=== PATIENT | male | born 1975 | race Caucasian/White ===

== ENCOUNTER 2021-06-17 18:38 | Emergency (ER) | payer OTHER ==
[2021-06-17 18:52] VITALS: BP 120/78
[2021-06-17] MEDS ORDERED: TORAdol 30 mg Injection IM ONE (19:30)
--- NOTE | 2021-06-17 19:33 | ERPHSYRPT ---
- History of Present Illness Time Seen by Provider: 06/17/21 19:20 Source: patient Exam Limitations: no limitations Patient Subjective Stated Complaint: twisted left knee today playing basketball, Triage Nursing Assessment: pt alert, walked in, resp easy, skin w/d/p, took tylenol today, no swelling or bruising noted Physician History: The patient is a 46-year-old male who presents with a chief complaint of left knee pain. Onset was around 1600 this afternoon. He states he was playing basketball and jumped and came down and thinks he "tweaked" his left knee upon landing on his feet. He is endorsed having pain mainly to the lateral aspect of the left knee since that time. He has been able to weight-bear without any perceived difficulty and there is no perceived swelling. He states that he is on Austin prescribed by his PCP for "arthritis." He denies any other injuries. The pain is nonradiating constant and mild to moderate severity. He denies any weakness or paresthesias in the left leg and/or left foot. Allergies/Adverse Reactions: Penicillins Allergy (Mild, Verified 06/17/21 18:42) Home Medications: Amiodarone HCl 1 ea DAILY 06/17/21 [History] Hydrocodone/Acetaminophen [Hydrocodone-Acetamin 7.5-300] 1 ea DAILY 06/17/21 [History] Metoprolol Tartrate 25 mg [Lopressor 25MG Tab] 1 ea DAILY 06/17/21 [History] Hx Tetanus, Diphtheria Vaccination/Date Given: No Hx Influenza Vaccination/Date Given: No Hx Pneumococcal Vaccination/Date Given: No Immunizations Up to Date: Yes Travel Risk - International Travel Have you traveled outside of the country in past 3 weeks: No - Coronavirus Screening Are you exhibiting any of the following symptoms?: No - Vaccine Status Have you recieved a Covid-19 vaccination: No - Review of Systems Musculoskeletal: Other (Left knee pain) All Other Systems: Reviewed and Negative - Past Medical History Pertinent Past Medical History: Yes Neurological History: Migraines, Other ENT History: No Pertinent History Cardiac History: Hypertension Respiratory History: Asthma Endocrine Medical History: Hypothyroidism Musculoskeletal History: No Pertinent History GI Medical History: No Pertinent History Psycho-Social History: Anxiety - Past Surgical History Past Surgical History: Yes Neuro Surgical History: No Pertinent History Cardiac: No Pertinent History Gastrointestinal: Hernia Repair Other Surgical History: HERNIA - Social History Smoking Status: Current every day smoker How long have you smoked: 20 YEARS Exposure to second hand smoke: Yes Drug Use: marijuana Patient Lives Alone: No - Nursing Vital Signs Nursing Vital Signs: Initial Vital Signs Temperature 97.2 F 06/17/21 18:51 Pulse Rate 78 06/17/21 18:51 Respiratory Rate 18 06/17/21 18:51 Blood Pressure 120/78 06/17/21 18:51 O2 Sat by Pulse Oximetry 98 06/17/21 18:51 Pain Scale Pain Intensity 4 - Physical Exam General Appearance: no apparent distress, alert Eye Exam: No scleral icterus, No EOM palsy/anisocoria Ears, Nose, Throat Exam: moist mucous membranes Neck Exam: other (Trachea is midline), No JVD Respiratory Exam: normal breath sounds, lungs clear, airway intact, No chest tenderness, No respiratory distress Cardiovascular Exam: regular rate/rhythm, normal heart sounds, normal peripheral pulses, other (Left DP and PT 2+, capillary refill brisk in all toes of the left foot) Rectal Exam: deferred Extremity Exam: normal inspection, tenderness (Mild tenderness to the lateral aspect of the knee. No obvious swelling, erythema or visible injury noted. The patient was able to fully flex and extend the knee. There is no crepitus. Anterior and posterior drawer sign was negative. Shayan test was negative), other Neurologic Exam: alert, oriented x 3, cooperative, other (Sensation to gross touch intact and equal in the L4, L5, and S1 nerve distribution) Skin Exam: normal color, warm, dry, No rash, No petechiae SpO2 Interpretation: normal SpO2: 98 - Radiology Exams Knee X-ray Interpretation: Interpreted by me, Reviewed by me, Negative Ordered Tests: Active Orders 24 hr Category Date Time Status [facility] Care 06/17/21 19:31 Completed Cold Application STAT Care 06/17/21 19:31 Completed KNEE (3 VIEWS) Stat Exams 06/17/21 19:30 Taken Medication Summary Discontinued Medications Generic Name Dose Route Start Last Admin Trade Name Freq PRN Reason Stop Dose Admin Ketorolac Tromethamine 30 mg 06/17/21 19:30 06/17/21 19:35 Ketorolac Tromethamine 30 Mg/Ml Inj IM 06/17/21 19:31 30 mg STAT ONE Administration Ketorolac Tromethamine Confirm 06/17/21 19:34 Ketorolac Tromethamine 30 Mg/Ml Inj Administered 06/17/21 19:35 Dose 30 mg .ROUTE .STK-MED ONE - Progress Progress: improved Progress Note: 06/18/21 02:09 Exam was relatively benign. I have a low suspicion for ligamentous injury or tendon injury at this point. Also the patient's bearing weight and able to rang e his knee appropriately and my suspicion for tibial plateau fracture is low and therefore a CT of his knee was deferred. At most the patient may have a meniscus injury but I have a low suspicion for this as well and if this is the case we do not have MRI available in the emergency department tonight. He does not feel any instability in his knee and therefore knee brace was deferred. I provided him an Parth wrap for comfort and recommend he take naproxen for pain in addition to his prescribed Austin as well as scheduled. I recommend he follow-up with his PCP for further evaluation. 06/18/21 02:12 Counseled pt/family regarding: diagnosis, rad results - Departure Departure Disposition: Home Clinical Impression: Left knee pain Condition: Stable Critical Care Time: No Referrals: ELMA BHAKTA [Primary Care Provider] - Follow up/PCP as directed Instructions: Knee Pain (DC) Prescriptions: Naproxen 500 mg [Naprosyn 500 MG] 500 mg PO BID #10 tablet
[2021-06-17] MEDS ORDERED: TORAdol 30 mg Injection ONE (19:34)
[2021-06-17 21:22] VITALS: PULSE 59
[2021-06-18 01:27] VITALS: O2SAT 98
--- NOTE | 2021-06-18 08:54 | XRAY ---
Indication: Pain following playing basketball. Comparison: None 3 view left knee demonstrates minimal medial joint space narrowing and small posterior fabella. No other bony, articular, or soft tissue abnormalities.
== END 2021-06-17 21:22 | disposition home or self-care (01) ==
LOC: ED 18:38
DX: M25.562 Pain in left knee (principal); X50.0XXA Overexertion from strenuous movement or load, initial encounter; Y93.67 Activity, basketball; I10 Essential (primary) hypertension; Z79.891 Long term (current) use of opiate analgesic; Z79.899 Other long term (current) drug therapy; Z72.0 Tobacco use
CPT/HCPCS: 73562; 96372; 99284; J1885

== ENCOUNTER 2021-08-07 05:17 | Emergency (ER) | payer OTHER ==
[2021-08-07] MEDS ORDERED: Sodium Chloride 0.9% 1000 ML 1,000 ML IV STA (05:44)
[2021-08-07] MEDS ORDERED: Zofran 4 MG/2 ML VIAL IV ONE (05:44)
[2021-08-07] MEDS ORDERED: Zofran 4 MG/2 ML VIAL ONE (05:47)
[2021-08-07] MEDS ORDERED: Sodium Chloride 0.9% 1000 ML 1,000 ML ONE (05:47)
[2021-08-07 06:04] LABS: Absolute Neutrophil Ct (ANC) 6.38 (1.4-6.9); Basophil (Absolute #) 0.02 (0-0.4); Eosinophil % 1.3 % (0.00-5.0); Eosinophil (Absolute #) 0.11 (0-0.5); Hematocrit 41.3 % (42-50); Lymphocyte (Absolute #) 0.99 (1.0-4.6); Lymphocytes % 11.9 % (24.0-44.0); Mean Corpuscular Hemoglobin 36.3 pg (26-32); Mean Corpuscular Hgb Concent. 33.9 g/dl (32-36); Mean Platelet Volume 9.2 fl (7.5-11.0); Monocyte (Absolute #) 0.81 (0.0-1.3); Monocytes % 9.7 % (0.0-12.0); Neutrophil % 76.9 % (36.0-66.0); Platelet Count 173 K/mm3 (150-450); Red Blood Count 3.86 M/mm3 (4.1-5.6); Red Cell Distribution Width 14.9 % (11.5-14.0); White Blood Count 8.3 K/mm3 (4.0-10.5)
--- NOTE | 2021-08-07 06:20 | ERPHSYRPT ---
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 pt denies chest pain, vital signs with in normal limits, pt denies pain at this time, pt did mention doing 3 shots of alcohol around 2100. Physician History: This is a 46 y/o white male patient with h/o afib on amiodarone, htn, hypothyroid, anxiety and migraine has and presents with vague c/o shakiness, difficulty concentrating and brief blurred vision after gagging himself while brushing his teeth and tongue. 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 pt has been having insomnia for last several days. he used marijuana, 3 shots of alcohol, trazodone and his remeron last pm. he fell to sleep right away but woke up not feeling right as described above. he was supposed to be at work but was concerned about the way he was feeling. Timing/Duration: today Severity: mild (to moderate) Associated Symptoms: other (shakiness, difficult to concentrate) Allergies/Adverse Reactions: Penicillins Allergy (Mild, Verified 06/17/21 18:42) Home Medications: Amiodarone HCl 1 ea DAILY 06/17/21 [History] Hydrocodone/Acetaminophen [Hydrocodone-Acetamin 7.5-300] 1 ea DAILY 06/17/21 [History] Metoprolol Tartrate 25 mg [Lopressor 25MG Tab] 1 ea DAILY 06/17/21 [History] Hx Tetanus, Diphtheria Vaccination/Date Given: No Hx Influenza Vaccination/Date Given: No Hx Pneumococcal Vaccination/Date Given: No Travel Risk - International Travel Have you traveled outside of the country in past 3 weeks: No - Coronavirus Screening Are you exhibiting any of the following symptoms?: No Close contact with a COVID-19 positive Pt in past 14-21 Days: No - Vaccine Status Have you recieved a Covid-19 vaccination: No - Review of Systems Constitutional: No Symptoms Eyes: No Symptoms Ears, Nose, & Throat: No Symptoms Respiratory: No Symptoms Cardiac: Other (mild chest pressure) Abdominal/Gastrointestinal: No Symptoms Genitourinary Symptoms: No Symptoms Musculoskeletal: No Symptoms Skin: No Symptoms Neurological: Other (shaky, difficult to concentrate), No Headache Psychological: No Symptoms Endocrine: No Symptoms Hematologic/Lymphatic: No Symptoms Immunological/Allergic: No Symptoms All Other Systems: Reviewed and Negative - Past Medical History Pertinent Past Medical History: Yes Neurological History: Migraines, Other ENT History: No Pertinent History Cardiac History: Arrhythmia, Hypertension Respiratory History: Asthma Endocrine Medical History: Hypothyroidism Musculoskeletal History: No Pertinent History GI Medical History: No Pertinent History History: No Pertinent History Psycho-Social History: Anxiety Male Reproductive Disorders: No Pertinent History - Past Surgical History Past Surgical History: Yes Neuro Surgical History: No Pertinent History Cardiac: No Pertinent History Respiratory: No Pertinent History Gastrointestinal: Hernia Repair Genitourinary: No Pertinent History Musculoskeletal: No Pertinent History Male Surgical History: No Pertinent History Other Surgical History: HERNIA - Social History Smoking Status: Current every day smoker How long have you smoked: 20 YEARS Exposure to second hand smoke: Yes Drug Use: marijuana Patient Lives Alone: No - Nursing Vital Signs Nursing Vital Signs: Initial Vital Signs Temperature 97.3 F 08/07/21 05:24 Pulse Rate 72 08/07/21 05:24 Respiratory Rate 16 08/07/21 05:24 Blood Pressure 128/86 08/07/21 05:24 O2 Sat by Pulse Oximetry 97 08/07/21 05:24 Pain Scale Pain Intensity 0 - Physical Exam General Appearance: no apparent distress, alert, anxiety Eye Exam: PERRL/EOMI, eyes nml inspection Ears, Nose, Throat Exam: normal ENT inspection, moist mucous membranes Neck Exam: normal inspection, non-tender, supple, full range of motion Respiratory Exam: normal breath sounds, lungs clear, airway intact, No chest tenderness, No respiratory distress Cardiovascular Exam: regular rate/rhythm, normal heart sounds, normal peripheral pulses Gastrointestinal/Abdomen Exam: soft, normal bowel sounds, No tenderness Rectal Exam: not done Back Exam: normal inspection, normal range of motion, No CVA tenderness, No vertebral tenderness Extremity Exam: normal inspection, normal range of motion, pelvis stable Neurologic Exam: alert, oriented x 3, cooperative, 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 no comparison ekg) Ordered Tests: Active Orders 24 hr Category Date Time Status IV Insertion STAT Care 08/07/21 05:55 Active HEAD WITHOUT CONTRAST [CT] Stat Exams 08/07/21 05:44 Taken CBC W DIFF Stat Lab 08/07/21 05:51 Completed CMP Stat Lab 08/07/21 05:51 Completed ETHYL ALCOHOL Stat Lab 08/07/21 05:51 Completed TROPONIN Q3H Lab 08/07/21 05:51 Received TROPONIN Q3H Lab 08/07/21 08:45 Ordered TROPONIN Q3H Lab 08/07/21 11:45 Ordered TROPONIN Q3H Lab 08/07/21 14:45 Ordered TROPONIN Q3H Lab 08/07/21 17:45 Ordered UA W/RFX UR CULTURE Stat Lab 08/07/21 05:44 Ordered Urine Triage Profile Stat Lab 08/07/21 05:44 Ordered EKG STAT RT 08/07/21 05:55 Active Medication Summary Discontinued Medications Generic Name Dose Route Start Last Admin Trade Name Florentino PRN Reason Stop Dose Admin Acetaminophen 650 mg 08/07/21 06:28 08/07/21 06:34 Acetaminophen 325 Mg Tablet PO 08/07/21 06:29 650 mg STAT ONE Administration Acetaminophen Confirm 08/07/21 06:33 Acetaminophen 325 Mg Tablet Administered 08/07/21 06:34 Dose 650 mg .ROUTE .STK-MED ONE Sodium Chloride 1,000 mls @ 999 mls/hr 08/07/21 05:44 08/07/21 05:49 Sodium Chloride 0.9% 1000 Ml IV 08/07/21 06:44 999 mls/hr .Q1H1M STA Administration Sodium Chloride Confirm 08/07/21 05:47 Sodium Chloride 0.9% 1000 Ml Administered 08/07/21 05:48 Dose 1,000 mls @ ud .ROUTE .STK-MED ONE Ondansetron HCl 4 mg 08/07/21 05:44 08/07/21 05:49 Ondansetron Hcl 4 Mg/2 Ml Vial IV 08/07/21 05:45 4 mg STAT ONE Administration Ondansetron HCl Confirm 08/07/21 05:47 Ondansetron Hcl 4 Mg/2 Ml Vial Administered 08/07/21 05:48 Dose 4 mg .ROUTE .STK-MED ONE Lab/Rad Data: Laboratory Result Diagrams 08/07/21 05:51 08/07/21 05:51 Laboratory Results 08/07/21 08/07/21 Range/Units 05:51 05:51 WBC 8.3 (4.0-10.5) K/mm3 RBC 3.86 L (4.1-5.6) M/mm3 Hgb 14.0 (12.5-18.0) gm/dl Hct 41.3 L (42-50) % MCV 107.0 H (78-100) fl MCH 36.3 H (26-32) pg MCHC 33.9 (32-36) g/dl RDW 14.9 H (11.5-14.0) % Plt Count 173 (150-450) K/mm3 MPV 9.2 (7.5-11.0) fl Gran % 76.9 H (36.0-66.0) % Eos # (Auto) 0.11 (0-0.5) Absolute Lymphs (auto) 0.99 L (1.0-4.6) Absolute Monos (auto) 0.81 (0.0-1.3) Lymphocytes % 11.9 L (24.0-44.0) % Monocytes % 9.7 (0.0-12.0) % Eosinophils % 1.3 (0.00-5.0) % Basophils % 0.2 (0.0-0.4) % Absolute Granulocytes 6.38 (1.4-6.9) Basophils # 0.02 (0-0.4) Sodium 142 (137-145) mmol/L Potassium 3.3 L (3.5-5.1) mmol/L Chloride 108 H (98-107) mmol/L Carbon Dioxide 23 (22-30) mmol/L Anion Gap 14.4 (5-15) MEQ/L BUN 16 (9-20) mg/dL Creatinine 0.80 (0.66-1.25) mg/dL Estimated GFR > 60.0 ML/MIN Glucose 109 H (74-106) mg/dL Calcium 8.8 (8.4-10.2) mg/dL Total Bilirubin 0.60 (0.2-1.3) mg/dL AST 82 H (17-59) U/L ALT 82 H (0-50) U/L Alkaline Phosphatase 68 (38-126) U/L Serum Total Protein 6.9 (6.3-8.2) g/dL Albumin 4.1 (3.5-5.0) g/dL Ethyl Alcohol < 10 (0-10) mg/dL - Progress Progress: improved, re-examined Progress Note: 08/07/21 06:50 ct scan head without contrast shows sinusitis. no acute intracranial abnormality Counseled pt/family regarding: lab results, diagnosis, need for follow-up, rad results - Departure Departure Disposition: Home Clinical Impression: Sinusitis Condition: Stable Critical Care Time: No Referrals: ELMA BHAKTA [Primary Care Provider] - Follow up/PCP as directed Additional Instructions: drink plenty of fluids. take antibiotics as prescribed. follow up with primary doctor for further evaluation and management Forms: Work/School Release Form Prescriptions: Doxycycline Hyclate 100 mg [Vibramycin 100 MG] 100 mg PO BID #14 tab
[2021-08-07 06:26] LABS: ALBUMIN 4.1 g/dL (3.5-5.0); ALKALINE PHOSPHATASE 68 U/L (38-126); ANION GAP 14.4 MEQ/L (5-15); BLOOD UREA NITROGEN 16 mg/dL (9-20); CHLORIDE 108 mmol/L (98-107); Calcium 8.8 mg/dL (8.4-10.2); Carbon Dioxide 23 mmol/L (22-30); EST GLOMERULAR FILTRATION RATE > 60.0 ML/MIN; ETHYL ALCOHOL < 10 mg/dL (0-10); Glucose 109 mg/dL (74-106); Potassium 3.3 mmol/L (3.5-5.1); SGOT/AST 82 U/L (17-59); SGPT/ALT 82 U/L (0-50); SODIUM 142 mmol/L (137-145); Total Protein 6.9 g/dL (6.3-8.2)
[2021-08-07] MEDS ORDERED: TYLENOL 325 MG PO ONE (06:28)
[2021-08-07] MEDS ORDERED: TYLENOL 325 MG ONE (06:33)
[2021-08-07 07:15] LABS: Appearance CLEAR (CLEAR); Bilirubin NEGATIVE (NEGATIVE); Dipstick done @ ? MAIN LAB; Glucose NEGATIVE (NEGATIVE); Ketones NEGATIVE (NEGATIVE); Nitrite NEGATIVE (NEGATIVE); Protein,Urine Dip TRACE (Negative); RBC TRACE-INTACT Ery/ul (0-5); Specific Gravity >=1.030 (1.005-1.025); Urobilinogen 0.2 mg/dL (0-1)
[2021-08-07 07:21] LABS: Mucus MODERATE /HPF (NEGATIVE); RBC 0-2 /HPF (0-2)
[2021-08-07 07:22] LABS: Urine Cultured Indicated? YES
[2021-08-07 07:32] LABS: Amphetamine,Urine NEGATIVE (NEGATIVE); Barbiturate,Urine NEGATIVE (NEGATIVE); Benzodiazepine,Urine NEGATIVE (NEGATIVE); Cocaine,Urine NEGATIVE (NEGATIVE); Methadone,Urine NEGATIVE (NEGATIVE); Opiate,Urine POSITIVE (NEGATIVE); PCP,Urine NEGATIVE (NEGATIVE); THC,Urine NEGATIVE (NEGATIVE)
[2021-08-07 07:51] VITALS: BP 125/81; PULSE 54; O2SAT 98
--- NOTE | 2021-08-07 08:52 | XRAY ---
Indication: Dizziness and blurry vision. Multiple contiguous axial images obtained through the head without contrast. Comparison: None. Normal appearing brain parenchyma, ventricles, and bony calvarium for patient's age. Near complete opacification of the visualized left maxillary sinus and mild mucosal thickening left ethmoid sinus. Remaining visualized paranasal sinuses and mastoid air cells are clear. Impression: Paranasal sinus disease. Otherwise normal CT head without contrast exam. Comment: Preliminary interpretation made by [facility]. No critical discrepancy.
== END 2021-08-07 07:57 | disposition home or self-care (01) ==
LOC: ED 05:17
DX: J32.8 Other chronic sinusitis (principal); H53.8 Other visual disturbances; G47.09 Other insomnia; I48.91 Unspecified atrial fibrillation; I10 Essential (primary) hypertension; Z72.0 Tobacco use; Z79.891 Long term (current) use of opiate analgesic; Z79.899 Other long term (current) drug therapy
CPT/HCPCS: 36000; 36415; 70450; 80053; 80307; 81015; 84484; 85025; 87086; 96360; 96374; 99284; G0480; J2405; A9270-GY

== ENCOUNTER 2021-08-25 06:48 | Emergency (ER) | payer OTHER ==
[2021-08-25] MEDS ORDERED: BABY ASPIRIN 81 MG CHEW PO ONE (07:18)
--- NOTE | 2021-08-25 07:18 | ERPHSYRPT ---
- History of Present Illness Time Seen by Provider: 08/25/21 07:05 Historian: patient Exam Limitations: no limitations Patient Subjective Stated Complaint: pt states "I have had chest pain for the past 10 minutes. I have had heart issues the past couple years." Triage Nursing Assessment: pt ambulated into the er; pt is axo x4; c/o chest pain; pt states 5/10 pain to chest that radiates up to avtar jaws and avtar shoulders; clear apical heart tone; 74 bpm; clear lung sounds in all lobes; strong avtar radial pulses; strong avtar pedal pulses; no edema present; no JVD; vitals wnl Physician History: This is a 46-year-old white male has a history of hypothyroidism, anxiety issues, hypertension, migraine headaches and atrial fibrillation who is also taking amiodarone and presents with 10 minutes of chest pain that occurred at work this morning. It was substernal and central sharpness with shooting sensation up his bilateral neck and bilateral shoulders. He denies shortness of breath. He denies nausea vomiting or diarrhea. He denies abdominal pain. He does not have a cough or fever. Patient is not on any anticoagulation therapy and he also states that he has not seeing a airport control operator at this time. He has an appoint with a airport control operator next per his report. He has no documented coronary artery disease. Patient is an everyday smoker. Patient states that he does use the nicotine as stated before, uses caffeine and took a mini phen capsule this morning which is high potency caffeine per his report. Timing/Duration: today Chest Pain Radiation: jaw (Bilateral), arm (Bilateral) Severity of Pain-Max: mild (To moderate) Severity of Pain-Current: mild (To moderate) Modifying Factors: Improves With: nothing Associated Symptoms: denies symptoms Nitro Today/Relief: no nitro taken today Aspirin Treatment Today: 81 mg x 4, provided by ED Allergies/Adverse Reactions: Penicillins Allergy (Mild, Verified 08/25/21 06:49) Home Medications: Amiodarone HCl 1 ea DAILY 06/17/21 [History] Hydrocodone/Acetaminophen [Hydrocodone-Acetamin 7.5-300] 1 ea DAILY 06/17/21 [History] Metoprolol Succinate [Toprol Xl] 100 mg PO 08/25/21 [History] Mirtazapine [Remeron] 15 mg PO 08/25/21 [History] Potassium Chloride [Klor-Con 10] 20 meq PO BID 08/25/21 [History] Hx Tetanus, Diphtheria Vaccination/Date Given: No Hx Influenza Vaccination/Date Given: No Hx Pneumococcal Vaccination/Date Given: No Travel Risk - International Travel Have you traveled outside of the country in past 3 weeks: No - Coronavirus Screening Are you exhibiting any of the following symptoms?: No Close contact with a COVID-19 positive Pt in past 14-21 Days: No - Vaccine Status Have you recieved a Covid-19 vaccination: No - Review of Systems Constitutional: No Symptoms Eyes: No Symptoms Ears, Nose, & Throat: No Symptoms Respiratory: No Symptoms Cardiac: Chest Pain Abdominal/Gastrointestinal: No Symptoms Genitourinary Symptoms: No Symptoms, Penile Discharge Musculoskeletal: No Symptoms Skin: No Symptoms Neurological: No Symptoms Psychological: No Symptoms Endocrine: No Symptoms Hematologic/Lymphatic: No Symptoms Immunological/Allergic: No Symptoms All Other Systems: Reviewed and Negative - Past Medical History Pertinent Past Medical History: Yes Neurological History: Migraines, Other ENT History: No Pertinent History Cardiac History: Hypertension Respiratory History: Asthma Endocrine Medical History: Hypothyroidism Musculoskeletal History: No Pertinent History GI Medical History: No Pertinent History History: No Pertinent History Psycho-Social History: Anxiety Male Reproductive Disorders: No Pertinent History - Past Surgical History Past Surgical History: Yes Neuro Surgical History: No Pertinent History Cardiac: No Pertinent History Respiratory: No Pertinent History Gastrointestinal: Hernia Repair Genitourinary: No Pertinent History Musculoskeletal: No Pertinent History Male Surgical History: No Pertinent History Other Surgical History: HERNIA - Social History Smoking Status: Current some day smoker How long have you smoked: 20 YEARS Exposure to second hand smoke: Yes Drug Use: none Patient Lives Alone: No - Nursing Vital Signs Nursing Vital Signs: Initial Vital Signs Temperature 97.5 F 08/25/21 06:49 Pulse Rate 74 08/25/21 06:49 Respiratory Rate 16 08/25/21 06:49 Blood Pressure 126/80 08/25/21 06:49 O2 Sat by Pulse Oximetry 98 08/25/21 06:49 Pain Scale Pain Intensity 0 - Physical Exam General Appearance: no apparent distress, alert, anxiety Eye Exam: PERRL/EOMI, eyes nml inspection Ears, Nose, Throat Exam: normal ENT inspection, moist mucous membranes, tonsillar exudate Neck Exam: normal inspection, non-tender, supple Respiratory Exam: normal breath sounds, chest tenderness, lungs clear, respiratory distress, airway intact Cardiovascular Exam: regular rate/rhythm, normal heart sounds, normal peripheral pulses Gastrointestinal/Abdomen Exam: soft, normal bowel sounds, No tenderness Rectal Exam: not done Back Exam: normal inspection, normal range of motion, vertebral tenderness, No CVA tenderness Extremity Exam: normal inspection, normal range of motion, pelvis stable Neurologic Exam: alert, oriented x 3, cooperative, cvir tech II-XII nml as tested, normal mood/affect, nml cerebellar function, nml station & gait, sensation nml Skin Exam: normal color, warm, dry Lymphatic Exam: No adenopathy SpO2 Interpretation: normal SpO2: 98 O2 Delivery: Room Air - Course Nursing assessment & vital signs reviewed: Yes EKG Interpreted by Me: RATE (74), Sinus Rhythm, NORMAL AXIS, NORMAL INTERVALS, NORMAL QRS, NORMAL ST-T, Other (No acute ischemic changes. No changes when compared to EKG dated 08/07/2021) Ordered Tests: Active Orders 24 hr Category Date Time Status EKG-ER Only STAT Care 08/25/21 07:18 Active IV Insertion STAT Care 08/25/21 07:18 Active Pulse Oximetry (ED) STAT Care 08/25/21 07:18 Active CHEST 1 VIEW (PORTABLE) Stat Exams 08/25/21 07:41 Completed CBC W DIFF Stat Lab 08/25/21 07:10 Completed CMP Stat Lab 08/25/21 07:10 Completed D-DIMER QUANTITATIVE Stat Lab 08/25/21 07:10 Completed NT PRO BNP Stat Lab 08/25/21 07:10 Completed PROTIME WITH INR Stat Lab 08/25/21 07:10 Completed T4 (Thyroxine) Stat Lab 08/25/21 07:10 Completed TROPONIN Q3H Lab 08/25/21 07:10 Completed TROPONIN Q3H Lab 08/25/21 10:25 Completed TROPONIN Q3H Lab 08/25/21 13:30 Ordered TROPONIN Q3H Lab 08/25/21 16:30 Ordered TROPONIN Q3H Lab 08/25/21 19:30 Ordered TSH, 3RD Generation Stat Lab 08/25/21 07:10 Completed Medication Summary Discontinued Medications Generic Name Dose Route Start Last Admin Trade Name Freq PRN Reason Stop Dose Admin Aspirin 324 mg 08/25/21 07:18 08/25/21 07:23 Aspirin 81 Mg Tab.Chew PO 08/25/21 07:19 324 mg STAT ONE Administration Aspirin Confirm 08/25/21 07:27 Aspirin 81 Mg Tab.Chew Administered 08/25/21 07:28 Dose 324 mg .ROUTE .STK-MED ONE Lab/Rad Data: Laboratory Result Diagrams 08/25/21 07:10 08/25/21 07:10 Laboratory Results 08/25/21 08/25/21 08/25/21 Range/Units 10:25 07:10 07:10 WBC (4.0-10.5) K/mm3 RBC (4.1-5.6) M/mm3 Hgb (12.5-18.0) gm/dl Hct (42-50) % MCV (78-100) fl MCH (26-32) pg MCHC (32-36) g/dl RDW (11.5-14.0) % Plt Count (150-450) K/mm3 MPV (7.5-11.0) fl Gran % (36.0-66.0) % Eos # (Auto) (0-0.5) Absolute Lymphs (auto) (1.0-4.6) Absolute Monos (auto) (0.0-1.3) Lymphocytes % (24.0-44.0) % Monocytes % (0.0-12.0) % Eosinophils % (0.00-5.0) % Basophils % (0.0-0.4) % Absolute Granulocytes (1.4-6.9) Basophils # (0-0.4) PT 10.4 (9.4-12.5) SECONDS INR 0.88 (0.8-3.0) D-Dimer 411 (215-500) ng/mL Sodium (137-145) mmol/L Potassium (3.5-5.1) mmol/L Chloride (98-107) mmol/L Carbon Dioxide (22-30) mmol/L Anion Gap (5-15) MEQ/L BUN (9-20) mg/dL Creatinine (0.66-1.25) mg/dL Estimated GFR ML/MIN Glucose (74-106) mg/dL Calcium (8.4-10.2) mg/dL Total Bilirubin (0.2-1.3) mg/dL AST (17-59) U/L ALT (0-50) U/L Alkaline Phosphatase (38-126) U/L Troponin I < 0.012 < 0.012 (0.000-0.034) ng/mL NT-Pro-B Natriuret Pep (0-450) pg/mL Serum Total Protein (6.3-8.2) g/dL Albumin (3.5-5.0) g/dL Thyroxine (T4) (5.53-10.96) ug/dL TSH 3rd Generation (0.47-4.68) mIU/L 08/25/21 08/25/21 Range/Units 07:10 07:10 WBC 8.6 (4.0-10.5) K/mm3 RBC 3.58 L (4.1-5.6) M/mm3 Hgb 13.5 (12.5-18.0) gm/dl Hct 38.4 L (42-50) % MCV 107.3 H (78-100) fl MCH 37.7 H (26-32) pg MCHC 35.2 (32-36) g/dl RDW 15.4 H (11.5-14.0) % Plt Count 185 (150-450) K/mm3 MPV 9.7 (7.5-11.0) fl Gran % 66.4 H (36.0-66.0) % Eos # (Auto) 0.07 (0-0.5) Absolute Lymphs (auto) 1.68 (1.0-4.6) Absolute Monos (auto) 1.15 (0.0-1.3) Lymphocytes % 19.4 L (24.0-44.0) % Monocytes % 13.3 H (0.0-12.0) % Eosinophils % 0.8 (0.00-5.0) % Basophils % 0.1 (0.0-0.4) % Absolute Granulocytes 5.7 (1.4-6.9) Basophils # 0.01 (0-0.4) PT (9.4-12.5) SECONDS INR (0.8-3.0) D-Dimer (215-500) ng/mL Sodium 140 (137-145) mmol/L Potassium 3.6 (3.5-5.1) mmol/L Chloride 107 (98-107) mmol/L Carbon Dioxide 26 (22-30) mmol/L Anion Gap 11.6 (5-15) MEQ/L BUN 12 (9-20) mg/dL Creatinine 0.81 (0.66-1.25) mg/dL Estimated GFR > 60.0 ML/MIN Glucose 137 H (74-106) mg/dL Calcium 9.4 (8.4-10.2) mg/dL Total Bilirubin 0.60 (0.2-1.3) mg/dL AST 110 H (17-59) U/L ALT 188 H (0-50) U/L Alkaline Phosphatase 68 (38-126) U/L Troponin I (0.000-0.034) ng/mL NT-Pro-B Natriuret Pep 194 (0-450) pg/mL Serum Total Protein 6.9 (6.3-8.2) g/dL Albumin 4.0 (3.5-5.0) g/dL Thyroxine (T4) 6.75 (5.53-10.96) ug/dL TSH 3rd Generation 0.163 L (0.47-4.68) mIU/L - Progress Progress: improved Air Movement: good Progress Note: 08/25/21 09:51 Chest x-ray shows no acute cardiopulmonary process Blood Culture(s) Obtained: No Antibiotics given: No Counseled pt/family regarding: lab results, diagnosis, need for follow-up, rad results - Departure Departure Disposition: Home Clinical Impression: Non-cardiac chest pain Condition: Stable Critical Care Time: No Referrals: ELMA BHAKTA [Primary Care Provider] - Follow up/PCP as directed Additional Instructions: Take your medication as prescribed. Follow-up with your airport control operator at your initial appointment time that is scheduled next week. Follow-up with your [facility] physician for further management.
[2021-08-25] MEDS ORDERED: BABY ASPIRIN 81 MG CHEW ONE (07:27)
[2021-08-25 07:39] LABS: INR 0.88 (0.8-3.0); PROTIME 10.4 SECONDS (9.4-12.5)
[2021-08-25 08:17] LABS: ALKALINE PHOSPHATASE 68 U/L (38-126); ANION GAP 11.6 MEQ/L (5-15); BLOOD UREA NITROGEN 12 mg/dL (9-20); CHLORIDE 107 mmol/L (98-107); Calcium 9.4 mg/dL (8.4-10.2); Carbon Dioxide 26 mmol/L (22-30); Creatinine 1 0.81 mg/dL (0.66-1.25); EST GLOMERULAR FILTRATION RATE > 60.0 ML/MIN; Glucose 137 mg/dL (74-106); NT PRO BNP 194 pg/mL (0-450); Potassium 3.6 mmol/L (3.5-5.1); SGOT/AST 110 U/L (17-59); SGPT/ALT 188 U/L (0-50); SODIUM 140 mmol/L (137-145); T4 (Thyroxine) 6.75 ug/dL (5.53-10.96); TSH, 3RD Generation 0.163 mIU/L (0.47-4.68); Total Protein 6.9 g/dL (6.3-8.2)
[2021-08-25 08:46] LABS: Red Blood Count 3.58 M/mm3 (4.1-5.6); White Blood Count 8.6 K/mm3 (4.0-10.5)
[2021-08-25 08:47] LABS: Hematocrit 38.4 % (42-50); Hemoglobin 13.5 gm/dl (12.5-18.0); Mean Cell Volume 107.3 fl (78-100); Mean Corpuscular Hemoglobin 37.7 pg (26-32); Mean Corpuscular Hgb Concent. 35.2 g/dl (32-36); Mean Platelet Volume 9.7 fl (7.5-11.0); Neutrophil % 66.4 % (36.0-66.0); Platelet Count 185 K/mm3 (150-450); Red Cell Distribution Width 15.4 % (11.5-14.0)
[2021-08-25 08:48] LABS: Absolute Neutrophil Ct (ANC) 5.7 (1.4-6.9); Basophil (Absolute #) 0.01 (0-0.4); Eosinophil % 0.8 % (0.00-5.0); Eosinophil (Absolute #) 0.07 (0-0.5); Lymphocyte (Absolute #) 1.68 (1.0-4.6); Lymphocytes % 19.4 % (24.0-44.0); Monocyte (Absolute #) 1.15 (0.0-1.3); Monocytes % 13.3 % (0.0-12.0)
--- NOTE | 2021-08-25 09:34 | XRAY ---
Indication: Chest pain. Comparison: July 06, 2021. Portable chest again demonstrates normal heart and lungs with incidental right apical calcified granuloma. Bony thorax intact again with mild degenerative changes. No new/acute findings.
[2021-08-25 09:52] VITALS: O2SAT 98
[2021-08-25 11:07] VITALS: BP 118/79; PULSE 58
== END 2021-08-25 11:04 | disposition home or self-care (01) ==
LOC: ED 06:48
DX: R07.89 Other chest pain (principal); I10 Essential (primary) hypertension; Z72.0 Tobacco use; Z79.891 Long term (current) use of opiate analgesic; Z79.899 Other long term (current) drug therapy
CPT/HCPCS: 36000; 36415; 71045; 80053; 83880; 84436; 84443; 84484; 85025; 85379; 85610; 93005; 94760; 99284; A9270-GY

== ENCOUNTER 2021-09-26 06:38 | Emergency (ER) | payer OTHER ==
[2021-09-26 06:58] VITALS: BP 140/83
[2021-09-26 07:08] VITALS: PULSE 89; O2SAT 98
[2021-09-26] MEDS ORDERED: Adacel Vial IM ONE ×2 (07:24→07:25)
--- NOTE | 2021-09-26 07:35 | ERPHSYRPT ---
- History of Present Illness Time Seen by Provider: 09/26/21 07:10 Source: patient Exam Limitations: no limitations Patient Subjective Stated Complaint: pt states "I was at work at cut my leg on some banding." Triage Nursing Assessment: Pt presents to ED with towel wrapped around R calf, Pt ambulatory to bed by self, pt alert and oriented, pt presents with a 3.5 cm x 0.5 cm laceration on R lower leg d/t injury at work, area cleaned with 4x4s, s terile water, and hibiclens, laceration is currently bleeding, pt is not utd on tetanus Physician History: Patient is a 46-year-old male presents to emergency department for evaluation of laceration to right leg. Patient was at work when injury occurred. Patient states he lacerated his leg on banding. Injury occurred just prior to arrival. Patient denies pain. Patient declined pain medication. Tetanus is not up-to-date. No other injuries reported. Symptoms are mild to moderate in intensity. No specific worsening improving factors. No bony tenderness or pain in his leg. Patient is otherwise healthy. He voices no other complaints or concerns at this time. Timing/Duration: today Severity: mild Modifying Factors: Improves With: nothing Associated Symptoms: denies symptoms Allergies/Adverse Reactions: Penicillins Allergy (Mild, Verified 08/25/21 06:49) Home Medications: Amiodarone HCl 1 ea DAILY 06/17/21 [History] Hydrocodone/Acetaminophen [Hydrocodone-Acetamin 7.5-300] 1 ea DAILY 06/17/21 [H istory] Metoprolol Succinate [Toprol Xl] 100 mg PO 08/25/21 [History] Mirtazapine [Remeron] 15 mg PO 08/25/21 [History] Potassium Chloride [Klor-Con 10] 20 meq PO BID 08/25/21 [History] Hx Tetanus, Diphtheria Vaccination/Date Given: No Hx Influenza Vaccination/Date Given: No Hx Pneumococcal Vaccination/Date Given: No Immunizations Up to Date: Yes Travel Risk - International Travel Have you traveled outside of the country in past 3 weeks: No - Coronavirus Screening Are you exhibiting any of the following symptoms?: No Close contact with a COVID-19 positive Pt in past 14-21 Days: No - Vaccine Status Have you recieved a Covid-19 vaccination: No - Review of Systems Constitutional: No Symptoms, No Fever, No Chills Eyes: No Symptoms Ears, Nose, & Throat: No Symptoms Respiratory: No Symptoms, No Cough, No Dyspnea Cardiac: No Symptoms, No Chest Pain, No Edema, No Syncope Abdominal/Gastrointestinal: No Symptoms, No Abdominal Pain, No Nausea, No Vomiting, No Diarrhea Genitourinary Symptoms: No Symptoms, No Dysuria Musculoskeletal: No Symptoms, No Back Pain, No Neck Pain Skin: No Symptoms, No Rash Neurological: No Symptoms, No Dizziness, No Focal Weakness, No Sensory Changes Psychological: No Symptoms Endocrine: No Symptoms Hematologic/Lymphatic: No Symptoms Immunological/Allergic: No Symptoms All Other Systems: Reviewed and Negative - Past Medical History Pertinent Past Medical History: Yes Neurological History: Migraines, Other ENT History: No Pertinent History Cardiac History: Hypertension Respiratory History: Asthma Endocrine Medical History: Hypothyroidism Musculoskeletal History: No Pertinent History GI Medical History: No Pertinent History History: No Pertinent History Psycho-Social History: Anxiety Male Reproductive Disorders: No Pertinent History - Past Surgical History Past Surgical History: Yes Neuro Surgical History: No Pertinent History Cardiac: No Pertinent History Respiratory: No Pertinent History Gastrointestinal: Hernia Repair Genitourinary: No Pertinent History Musculoskeletal: No Pertinent History Male Surgical History: No Pertinent History Other Surgical History: HERNIA - Social History Smoking Status: Current every day smoker How long have you smoked: 20 YEARS Exposure to second hand smoke: No Drug Use: none Patient Lives Alone: No - Nursing Vital Signs Nursing Vital Signs: Initial Vital Signs Temperature 98.2 F 09/26/21 06:50 Pulse Rate 70 09/26/21 06:50 Respiratory Rate 18 09/26/21 06:50 Blood Pressure 140/83 09/26/21 06:50 O2 Sat by Pulse Oximetry 97 09/26/21 06:50 Pain Scale Pain Intensity 4 - Physical Exam General Appearance: no apparent distress, alert Eye Exam: PERRL/EOMI, eyes nml inspection Ears, Nose, Throat Exam: normal ENT inspection, TMs normal, pharynx normal, moist mucous membranes Neck Exam: normal inspection, non-tender, supple, full range of motion Respiratory Exam: normal breath sounds, lungs clear, No respiratory distress Cardiovascular Exam: regular rate/rhythm, normal heart sounds, normal peripheral pulses Gastrointestinal/Abdomen Exam: soft, normal bowel sounds, No tenderness, No mass Back Exam: normal inspection, normal range of motion, No CVA tenderness, No vertebral tenderness Extremity Exam: normal inspection, normal range of motion, pelvis stable Neurologic Exam: alert, oriented x 3, cooperative, normal mood/affect, nml cerebellar function, nml station & gait, sensation nml, No motor deficits Skin Exam: normal color, warm, dry, other (4 cm laceration to the posterior lateral aspect of his right leg. Extremity neurovascular tact distally. Compartments are soft. Cap refill less than 2 seconds.), No rash Lymphatic Exam: No adenopathy SpO2 Interpretation: normal SpO2: 98 O2 Delivery: Room Air Procedures - Laceration/Wound Repair Calf Wound Location: Right Wound Length (cm): 4 Wound's Depth, Shape: superficial Wound Explored: clean Irrigated: Yes Hibiclens Prep: Yes Wound Debrided: No debridement indicated Wound Repaired With: Addy (6 addy) Layer Closure?: No Sterile Dressing Applied?: Yes Splint Applied?: No - Course Nursing assessment & vital signs reviewed: Yes Ordered Tests: Medication Summary Discontinued Medications Generic Name Dose Route Start Last Admin Trade Name Holdenq PRN Reason Stop Dose Admin Diphtheria/Tetanus/Acell Pertussis 0.5 ml 09/26/21 07:24 09/26/21 07:27 Tdap --Diph,Pertuss(Acell),Tet Vac/Pf 0.5 Ml Vial IM 09/26/21 07:25 0.5 ml .ONCE ONE Administration Diphtheria/Tetanus/Acell Pertussis Confirm 09/26/21 07:25 Tdap --Diph,Pertuss(Acell),Tet Vac/Pf 0.5 Ml Vial Administered 09/26/21 07:26 Dose 0.5 ml IM .STK-MED ONE - Progress Progress: improved Progress Note: Patient claimed pain medication. Wound was irrigated by nursing staff. Patient chose addy instead of suture. 6 addy used to close the wound. No intra or postprocedural complications. Patient neurovascular tact distally post procedure. Tetanus updated. Sterile dressing applied. [place] are to be maintained for a period of 7 days. Patient agrees to follow-up with his primary care doctor within 48 hours for evaluation. Portions of this note were created with voice recognition technology. There may be grammatical, spelling, punctuation or sound alike errors 09/26/21 07:35 Prescription for Bactrim forwarded to patient's pharmacy. 09/26/21 07:39 Counseled pt/family regarding: diagnosis, need for follow-up - Departure Departure Disposition: Home Clinical Impression: Laceration Condition: Stable Critical Care Time: No Referrals: ELMA BHAKTA [Primary Care Provider] - Follow up/PCP as directed Additional Instructions: Discharge/Care Plan TRISTIAN EID was seen on 09/26/21 in the Emergency Room. The patient was counseled regarding Diagnosis,Lab results, Imaging studies, need for follow up and when to return to the Emergency Room. Prescriptions given: Discharge Note I have spoken with the patient and/or caregivers. I have explained the patient's condition, diagnosis and treatment plan based on the information available to me at this time. I have answered the patient's and/or caregiver's questions and addressed any concerns. The patient and/or caregivers have as good understanding of the patient's diagnosis, condition and treatment plan as can be expected at this point. The vital signs have been stable. The patient's condition is stable and appropriate for discharge from the emergency department. The patient will pursue further outpatient evaluation with the primary care physician or other designated or consulting physician as outlined in the discharge instructions. The patient and/or caregivers are agreeable to this plan of care and follow-up instructions have been explained in detail. The patient and/or caregivers have received these instruction. The patient/and or caregivers are aware that any significant change in condition or worsening of symptoms should prompt an immediate return to this or the closest emergency department or call 911. Prescriptions: Smz/Tmp Ds Tablet [Bactrim Ds Tablet] 1 udtab PO BID #14 tablet
== END 2021-09-26 07:42 | disposition home or self-care (01) ==
LOC: ED 06:38
DX: S81.811A Laceration without foreign body, right lower leg, initial encounter (principal); W45.8XXA Other foreign body or object entering through skin, initial encounter; Y92.63 Factory as the place of occurrence of the external cause; Y99.0 Civilian activity done for income or pay; I10 Essential (primary) hypertension; Z72.0 Tobacco use; Z79.891 Long term (current) use of opiate analgesic; Z79.899 Other long term (current) drug therapy; Z28.310 Unvaccinated for COVID-19
CPT/HCPCS: 12002; 90471; 90715; 99284

== ENCOUNTER 2021-10-13 19:58 | Emergency (ER) | payer OTHER ==
--- NOTE | 2021-10-13 20:07 | ERPHSYRPT ---
- History of Present Illness Time Seen by Provider: 10/13/21 20:03 Source: patient Exam Limitations: no limitations Physician History: This 46-year-old white male who suffered a laceration on 09/26/2021 and underwent staple repair with 6 ronnie applied for laceration closure. Patient has no complaints and is here for wound check and staple removal. Location: extremities (Right leg) Allergies/Adverse Reactions: Penicillins Allergy (Mild, Verified 10/13/21 20:05) Home Medications: Amiodarone HCl 1 ea DAILY 06/17/21 [History] Hydrocodone/Acetaminophen [Hydrocodone-Acetamin 7.5-300] 1 ea DAILY 06/17/21 [History] Metoprolol Succinate [Toprol Xl] 100 mg PO 08/25/21 [History] Mirtazapine [Remeron] 15 mg PO 08/25/21 [History] Potassium Chloride [Klor-Con 10] 20 meq PO BID 08/25/21 [History] Hx Tetanus, Diphtheria Vaccination/Date Given: No Hx Influenza Vaccination/Date Given: No Hx Pneumococcal Vaccination/Date Given: No Travel Risk - International Travel Have you traveled outside of the country in past 3 weeks: No - Coronavirus Screening Are you exhibiting any of the following symptoms?: No Close contact with a COVID-19 positive Pt in past 14-21 Days: No - Vaccine Status Have you recieved a Covid-19 vaccination: No - Review of Systems Constitutional: No Symptoms Eyes: No Symptoms Ears, Nose, & Throat: No Symptoms Respiratory: No Symptoms Cardiac: No Symptoms Abdominal/Gastrointestinal: No Symptoms Genitourinary Symptoms: No Symptoms Musculoskeletal: No Symptoms Skin: Other (Here for wound check and staple removal.) Neurological: No Symptoms Psychological: No Symptoms Endocrine: No Symptoms Hematologic/Lymphatic: No Symptoms Immunological/Allergic: No Symptoms All Other Systems: Reviewed and Negative - Past Medical History Pertinent Past Medical History: Yes Neurological History: Migraines, Other ENT History: No Pertinent History Cardiac History: Hypertension Respiratory History: Asthma Endocrine Medical History: Hypothyroidism Musculoskeletal History: No Pertinent History GI Medical History: No Pertinent History History: No Pertinent History Psycho-Social History: Anxiety Male Reproductive Disorders: No Pertinent History - Past Surgical History Past Surgical History: Yes Neuro Surgical History: No Pertinent History Cardiac: No Pertinent History Respiratory: No Pertinent History Gastrointestinal: Hernia Repair Genitourinary: No Pertinent History Musculoskeletal: No Pertinent History Male Surgical History: No Pertinent History Other Surgical History: HERNIA - Social History Smoking Status: Current every day smoker How long have you smoked: 20 YEARS Exposure to second hand smoke: No Drug Use: none Patient Lives Alone: No - Nursing Vital Signs Nursing Vital Signs: Initial Vital Signs Temperature 97.8 F 10/13/21 20:05 Pulse Rate 89 10/13/21 20:05 Respiratory Rate 16 10/13/21 20:05 Blood Pressure 131/82 10/13/21 20:05 O2 Sat by Pulse Oximetry 96 10/13/21 20:05 Pain Scale Pain Intensity 0 - Physical Exam General Appearance: no apparent distress, alert Eye Exam: PERRL/EOMI, eyes nml inspection Ears, Nose, Throat Exam: normal ENT inspection, moist mucous membranes Neck Exam: normal inspection, non-tender, supple, full range of motion Respiratory Exam: airway intact, No chest tenderness, No respiratory distress Gastrointestinal/Abdomen Exam: No tenderness Rectal Exam: not done Back Exam: normal inspection, normal range of motion, No CVA tenderness, No vertebral tenderness Extremity Exam: normal range of motion, pelvis stable Neurologic Exam: alert, oriented x 3, cooperative, duplication specialist II-XII nml as tested, normal mood/affect, nml cerebellar function, nml station & gait, sensation nml Skin Exam: other (Laceration repair site with ronnie is clean intact. There is no evidence of drainage or infection.) Lymphatic Exam: No adenopathy SpO2 Interpretation: normal - Course Nursing assessment & vital signs reviewed: Yes - Progress Progress: improved Progress Note: 10/13/21 20:16 Laceration repair site was examined by me. TRISTAN Olivas remove the ronnie at my direction. The air was then cleaned dried and benzoin solution was used to clean the site and then half-inch Steri-Strips were applied. - Departure Departure Disposition: Home Clinical Impression: Visit for wound check, Removal of ronnie Condition: Stable Critical Care Time: No Referrals: ELMA BHAKTA [Primary Care Provider] - Follow up/PCP as directed Additional Instructions: After 24 hours keep laceration repair site clean with soap and water each day.
[2021-10-13 20:12] VITALS: O2SAT 96
[2021-10-13 20:26] VITALS: BP 112/74; PULSE 86
== END 2021-10-13 20:26 | disposition home or self-care (01) ==
LOC: ED 19:58
DX: Z48.02 Encounter for removal of sutures (principal); I10 Essential (primary) hypertension; Z72.0 Tobacco use; Z79.891 Long term (current) use of opiate analgesic; Z79.899 Other long term (current) drug therapy; Z28.310 Unvaccinated for COVID-19
CPT/HCPCS: 99281; G0463

== ENCOUNTER 2021-11-22 04:23 | Emergency (ER) | payer OTHER ==
[2021-11-22 04:59] LABS: Absolute Neutrophil Ct (ANC) 6.35 x10^3/uL (1.4-6.9); Basophil (Absolute #) 0.03 x10^3/uL (0-0.4); Eosinophil % 0.8 % (0.00-5.0); Eosinophil (Absolute #) 0.08 x10^3/uL (0-0.5); Hematocrit 51.4 % (42-50); Lymphocyte (Absolute #) 2.98 x10^3/uL (1.0-4.6); Lymphocytes % 28.8 % (24.0-44.0); Mean Cell Volume 104.9 fL (78-100); Mean Corpuscular Hemoglobin 36.7 pg (26-32); Mean Platelet Volume 9.1 fL (7.5-11.0); Monocyte (Absolute #) 0.86 x10^3/uL (0.0-1.3); Monocytes % 8.3 % (0.0-12.0); Neutrophil % 61.3 % (36.0-66.0); Platelet Count 209 x10^3/uL (150-450); Red Cell Distribution Width 12.9 % (11.5-14.0); White Blood Count 10.4 x10^3/uL (4.0-10.5)
[2021-11-22 05:22] LABS: INR 0.94 (0.8-3.0)
[2021-11-22 05:31] LABS: D-DIMER QUANTITATIVE 1.33 mg/L (0.0-0.50)
[2021-11-22 05:33] LABS: ALBUMIN 4.8 g/dL (3.5-5.0); ALKALINE PHOSPHATASE 76 U/L (38-126); ANION GAP 14.9 MEQ/L (5-15); BLOOD UREA NITROGEN 12 mg/dL (9-20); CHLORIDE 106 mmol/L (98-107); Calcium 9.3 mg/dL (8.4-10.2); Carbon Dioxide 23 mmol/L (22-30); Creatinine 1 0.86 mg/dL (0.66-1.25); EST GLOMERULAR FILTRATION RATE > 60.0 ML/MIN; Glucose 93 mg/dL (74-106); NT PRO BNP 61.5 pg/mL (0-450); Potassium 3.6 mmol/L (3.5-5.1); SGOT/AST 74 U/L (17-59); SGPT/ALT 60 U/L (0-50); SODIUM 141 mmol/L (137-145); TROPONIN < 0.012 ng/mL (0.000-0.034); Total Protein 8.5 g/dL (6.3-8.2)
--- NOTE | 2021-11-22 05:41 | ERPHSYRPT ---
- History of Present Illness Time Seen by Provider: 11/22/21 05:55 Historian: patient Exam Limitations: no limitations Patient Subjective Stated Complaint: pt arrived by EMT stating that he was having chest pressure, and dizziness, and heart feeling strange. pt has been fe eling this way for one hour. pt states he taked amiodorone for afib that he did not take today yet. Triage Nursing Assessment: pt is alert and oriented, able to answer all que stions appropriatly. pt states he has chest tightness at this time. Physician History: Patient a 46-year-old male presents to emergency department via EMS for evaluation of chest pain. Chest pain started approximate hour prior to arrival. Chest pain described as a pressure sensation that is substernal. Pain associated with dizziness. Patient states his heart feels strange. Patient has a history of atrial fibrillation and is currently on amiodarone. No associated nausea or vomiting. No diaphoresis. No back pain. No syncope. Symptoms are mild to moderate in intensity. No specific worsening improving factors. Patient does state he is a smoker. Patient voices no other complaints or concerns at this time. Timing/Duration: today Activities at Onset: none Quality: pressure Location: substernal Chest Pain Radiation: no radiation Severity of Pain-Max: moderate Severity of Pain-Current: mild Modifying Factors: Improves With: nothing Associated Symptoms: dizziness Prior Chest Pain/Cardiac Workup: no prior chest pain Nitro Today/Relief: no nitro taken today Aspirin Treatment Today: no aspirin today Allergies/Adverse Reactions: Penicillins Allergy (Mild, Verified 10/13/21 20:05) Home Medications: Amiodarone HCl 1 ea DAILY 06/17/21 [History] Hydrocodone/Acetaminophen [Hydrocodone-Acetamin 7.5-300] 1 ea DAILY 06/17/21 [History] Metoprolol Succinate [Toprol Xl] 100 mg PO 08/25/21 [History] Mirtazapine [Remeron] 15 mg PO 08/25/21 [History] Potassium Chloride [Klor-Con 10] 20 meq PO BID 08/25/21 [History] Hx Tetanus, Diphtheria Vaccination/Date Given: No Hx Influenza Vaccination/Date Given: No Hx Pneumococcal Vaccination/Date Given: No Travel Risk - International Travel Have you traveled outside of the country in past 3 weeks: No - Coronavirus Screening Are you exhibiting any of the following symptoms?: No - Vaccine Status Have you recieved a Covid-19 vaccination: No - Review of Systems Constitutional: No Symptoms, No Fever, No Chills Eyes: No Symptoms Ears, Nose, & Throat: No Symptoms Respiratory: No Symptoms, No Cough, No Dyspnea Cardiac: No Symptoms, No Chest Pain, No Edema, No Syncope Abdominal/Gastrointestinal: No Symptoms, No Abdominal Pain, No Nausea, No Vomiting, No Diarrhea Genitourinary Symptoms: No Symptoms, No Dysuria Musculoskeletal: No Symptoms, No Back Pain, No Neck Pain Skin: No Symptoms, No Rash Neurological: No Symptoms, No Dizziness, No Focal Weakness, No Sensory Changes Psychological: No Symptoms Endocrine: No Symptoms Hematologic/Lymphatic: No Symptoms Immunological/Allergic: No Symptoms All Other Systems: Reviewed and Negative - Past Medical History Pertinent Past Medical History: Yes Neurological History: Migraines, Other ENT History: No Pertinent History Cardiac History: Hypertension Respiratory History: Asthma Endocrine Medical History: Hypothyroidism Musculoskeletal History: No Pertinent History GI Medical History: No Pertinent History History: No Pertinent History Psycho-Social History: Anxiety Male Reproductive Disorders: No Pertinent History - Past Surgical History Past Surgical History: Yes Neuro Surgical History: No Pertinent History Cardiac: No Pertinent History Respiratory: No Pertinent History Gastrointestinal: Hernia Repair Genitourinary: No Pertinent History Musculoskeletal: No Pertinent History Male Surgical History: No Pertinent History Other Surgical History: HERNIA - Social History Smoking Status: Current every day smoker How long have you smoked: 20 YEARS Exposure to second hand smoke: No Drug Use: none Patient Lives Alone: No - Nursing Vital Signs Nursing Vital Signs: Initial Vital Signs O2 Sat by Pulse Oximetry 99 11/22/21 05:40 Pain Scale Pain Intensity 0 - Physical Exam General Appearance: no apparent distress, alert Eye Exam: PERRL/EOMI, eyes nml inspection Ears, Nose, Throat Exam: normal ENT inspection, TMs normal, pharynx normal, moist mucous membranes Neck Exam: normal inspection, non-tender, supple, full range of motion Respiratory Exam: normal breath sounds, lungs clear, airway intact, No respiratory distress Cardiovascular Exam: regular rate/rhythm, normal heart sounds, normal peripheral pulses Gastrointestinal/Abdomen Exam: soft, normal bowel sounds, No tenderness, No mass Back Exam: normal inspection, normal range of motion, No CVA tenderness, No vertebral tenderness Extremity Exam: normal inspection, normal range of motion Neurologic Exam: alert, oriented x 3, cooperative, normal mood/affect, sensation nml, No motor deficits Skin Exam: normal color, warm, dry Lymphatic Exam: No adenopathy SpO2 Interpretation: normal SpO2: 99 O2 Delivery: Room Air - Course Nursing assessment & vital signs reviewed: Yes EKG Interpreted by Me: RATE (93), Sinus Rhythm, NORMAL AXIS, NORMAL INTERVALS (Ventricular trigeminy) - Radiology Exams Chest X-ray Interpretation: Interpreted by me (Clear lung castro. Normal cardiac silhouette. Intact bony thorax) Ordered Tests: Active Orders 24 hr Category Date Time Status Water Taxi Operator STAT Care 11/22/21 04:35 Active EKG-ER Only STAT Care 11/22/21 04:33 Active IV Insertion STAT Care 11/22/21 04:33 Active Pulse Oximetry (ED) STAT Care 11/22/21 04:33 Active CHEST 1 VIEW (PORTABLE) Stat Exams 11/22/21 04:34 Taken CHEST WITH CONTRAST [CT] Stat Exams 11/22/21 05:33 Taken CBC W DIFF Stat Lab 11/22/21 04:55 Completed CMP Stat Lab 11/22/21 04:55 Completed D-DIMER QUANTITATIVE Stat Lab 11/22/21 04:55 Completed NT PRO BNP Stat Lab 11/22/21 04:55 Completed PROTIME WITH INR Stat Lab 11/22/21 04:55 Completed TROPONIN Stat Lab 11/22/21 04:55 Completed Transfer Order Routine Transfer 11/22/21 Ordered Lab/Rad Data: Laboratory Result Diagrams 11/22/21 04:55 11/22/21 04:55 Laboratory Results 11/22/21 11/22/21 11/22/21 Range/Units 06:16 04:55 04:55 WBC (4.0-10.5) x10^3/uL RBC (4.1-5.6) x10^6/uL Hgb (12.5-18.0) g/dL Hct (42-50) % MCV (78-100) fL MCH (26-32) pg MCHC (32-36) g/dL RDW (11.5-14.0) % Plt Count (150-450) x10^3/uL MPV (7.5-11.0) fL Gran % (36.0-66.0) % Immature Gran % (Auto) (0.00-0.4) % Nucleat RBC Rel Count (0.00-0.1) % Eos # (Auto) (0-0.5) x10^3/uL Immature Gran # (Auto) (0.00-0.03) x10^3u/L Absolute Lymphs (auto) (1.0-4.6) x10^3/uL Absolute Monos (auto) (0.0-1.3) x10^3/uL Absolute Nucleated RBC (0.00-0.01) x10^3u/L Lymphocytes % (24.0-44.0) % Monocytes % (0.0-12.0) % Eosinophils % (0.00-5.0) % Basophils % (0.0-0.4) % Absolute Granulocytes (1.4-6.9) x10^3/uL Basophils # (0-0.4) x10^3/uL PT 10.0 (9.4-12.5) SECONDS INR 0.94 (0.8-3.0) D-Dimer 1.33 H* (0.0-0.50) mg/L Sodium 141 (137-145) mmol/L Potassium 3.6 (3.5-5.1) mmol/L Chloride 106 (98-107) mmol/L Carbon Dioxide 23 (22-30) mmol/L Anion Gap 14.9 (5-15) MEQ/L BUN 12 (9-20) mg/dL Creatinine 0.86 (0.66-1.25) mg/dL Estimated GFR > 60.0 ML/MIN Glucose 93 (74-106) mg/dL Calcium 9.3 (8.4-10.2) mg/dL Total Bilirubin 0.70 (0.2-1.3) mg/dL AST 74 H (17-59) U/L ALT 60 H (0-50) U/L Alkaline Phosphatase 76 (38-126) U/L Troponin I < 0.012 (0.000-0.034) ng/mL NT-Pro-B Natriuret Pep 61.5 (0-450) pg/mL Serum Total Protein 8.5 H (6.3-8.2) g/dL Albumin 4.8 (3.5-5.0) g/dL Influenza Type A Ag NEGATIVE (NEGATIVE) Influenza Type B Ag NEGATIVE (NEGATIVE) RSV (PCR) NEGATIVE (Negative) SARS-CoV-2 (PCR) NEGATIVE (NEGATIVE) 11/22/21 Range/Units 04:55 WBC 10.4 (4.0-10.5) x10^3/uL RBC 4.90 (4.1-5.6) x10^6/uL Hgb 18.0 (12.5-18.0) g/dL Hct 51.4 H (42-50) % MCV 104.9 H (78-100) fL MCH 36.7 H (26-32) pg MCHC 35.0 (32-36) g/dL RDW 12.9 (11.5-14.0) % Plt Count 209 (150-450) x10^3/uL MPV 9.1 (7.5-11.0) fL Gran % 61.3 (36.0-66.0) % Immature Gran % (Auto) 0.5 H (0.00-0.4) % Nucleat RBC Rel Count 0.0 (0.00-0.1) % Eos # (Auto) 0.08 (0-0.5) x10^3/uL Immature Gran # (Auto) 0.05 H (0.00-0.03) x10^3u/L Absolute Lymphs (auto) 2.98 (1.0-4.6) x10^3/uL Absolute Monos (auto) 0.86 (0.0-1.3) x10^3/uL Absolute Nucleated RBC 0.00 (0.00-0.01) x10^3u/L Lymphocytes % 28.8 (24.0-44.0) % Monocytes % 8.3 (0.0-12.0) % Eosinophils % 0.8 (0.00-5.0) % Basophils % 0.3 (0.0-0.4) % Absolute Granulocytes 6.35 (1.4-6.9) x10^3/uL Basophils # 0.03 (0-0.4) x10^3/uL PT (9.4-12.5) SECONDS INR (0.8-3.0) D-Dimer (0.0-0.50) mg/L Sodium (137-145) mmol/L Potassium (3.5-5.1) mmol/L Chloride (98-107) mmol/L Carbon Dioxide (22-30) mmol/L Anion Gap (5-15) MEQ/L BUN (9-20) mg/dL Creatinine (0.66-1.25) mg/dL Estimated GFR ML/MIN Glucose (74-106) mg/dL Calcium (8.4-10.2) mg/dL Total Bilirubin (0.2-1.3) mg/dL AST (17-59) U/L ALT (0-50) U/L Alkaline Phosphatase (38-126) U/L Troponin I (0.000-0.034) ng/mL NT-Pro-B Natriuret Pep (0-450) pg/mL Serum Total Protein (6.3-8.2) g/dL Albumin (3.5-5.0) g/dL Influenza Type A Ag (NEGATIVE) Influenza Type B Ag (NEGATIVE) RSV (PCR) (Negative) SARS-CoV-2 (PCR) (NEGATIVE) - Progress Progress: improved Air Movement: good Progress Note: Patient reassessed. No active chest pain. Initial troponin negative. D-dimer positive. CTA chest pending. Patient is a daily smoker he has been smoking daily for approximately 30 years. Patient also drinks alcohol regularly. He denies history of withdrawal. In light of patient's symptoms and risk factors patient will be admitted for cardiac rule out. COVID test pending. Case discussed with Dr. Guerra who accepts admission to observation. Plan of care discussed with patient. He agrees to admission at [facility] for further evaluation and treatment. Portions of this note were created with voice recognition technology. There may be grammatical, spelling, punctuation or sound alike errors 11/22/21 07:10 Blood Culture(s) Obtained: No Antibiotics given: No Counseled pt/family regarding: lab results, diagnosis, rad results - Departure Departure Disposition: Observation Clinical Impression: ACS (acute coronary syndrome), Abnormal EKG Condition: Stable Critical Care Time: No Referrals: ELMA BHAKTA [Primary Care Provider] - Follow up/PCP as directed
[2021-11-22 07:05] LABS: INFLUENZA A NEGATIVE (NEGATIVE); INFLUENZA B NEGATIVE (NEGATIVE); RESPIRATORY SYNCTIAL VIRUS NEGATIVE (Negative); SARS-CoV-2 Xpert Express NEGATIVE (NEGATIVE)
[2021-11-22 07:40] VITALS: BP 119/84; PULSE 47; O2SAT 97
--- NOTE | 2021-11-22 09:49 | XRAY ---
Indication: Chest pain, short of breath, nausea, and vomiting. Elevated d-dimer. Multiple contiguous axial images obtained through the chest using 100 cc Isovue 370 contrast and PE protocol. Comparison: None There is good opacification of the pulmonary arteries to includes the lobar and segmental branches. No pulmonary embolus. Heart not enlarged. Aorta is normal in course and caliber. Tiny mediastinal calcified nodes. No pathologic mediastinal/hilar lymphadenopathy. Lungs demonstrates small right apical calcified granuloma and minimal bilateral dependent atelectasis. No suspicious pulmonary mass, infiltrate, effusion, or pneumothorax. Bony thorax intact with minimal degenerative changes throughout the spine. Limited upper abdomen demonstrates fatty liver. Impression: Negative pulmonary embolus. No acute cardiopulmonary abnormalities. Incidental fatty liver and old granulomatous disease. Comment: Preliminary interpretation made by [facility]. No critical discrepancy.
--- NOTE | 2021-11-22 09:49 | XRAY ---
Indication: Chest pain and pressure. Comparison: August 25, 2021 Portable chest again demonstrates normal heart and lungs with incidental right apical calcified granuloma. Bony thorax intact. No new/acute findings.
== END 2021-11-22 07:45 | disposition left against medical advice (07) ==
LOC: ED 04:23
DX: I24.9 Acute ischemic heart disease, unspecified (principal); R94.31 Abnormal electrocardiogram [ECG] [EKG]; R07.9 Chest pain, unspecified; R42 Dizziness and giddiness; I10 Essential (primary) hypertension; Z72.0 Tobacco use; Z79.899 Other long term (current) drug therapy; Z28.310 Unvaccinated for COVID-19
CPT/HCPCS: 0241U; 36000; 36415; 71045; 71260; 80053; 83880; 84484; 85025; 85379; 85610; 93005; 93041; 94760; 99284

== ENCOUNTER 2022-03-19 22:56 | Emergency (ER) | payer OTHER ==
--- NOTE | 2022-03-19 23:27 | ERPHSYRPT ---
- History of Present Illness Time Seen by Provider: 03/20/22 00:25 Historian: patient Exam Limitations: no limitations Physician History: Patient is a 46-year-old male presents to our ED for evaluation of left-sided chest pain with radiating into his left arm. He has a history of A. fib. Patient went to work today. Patient states approximately 20 minutes prior to arrival patient experienced numbness and tingling down his left leg. Patient thought he was having a stroke. Patient told his boss and was cleared to come to our ED. Upon arrival symptoms had resolved. Patient neurologically normal. Symptoms are mild to moderate in intensity. No specific worsening improving factors. Patient voices no other complaints or concerns at this time. Portions of this note were created with voice recognition technology. There may be grammatical, spelling, punctuation or sound alike errors Timing/Duration: today Activities at Onset: none Quality: aching Location: other (Left chest) Chest Pain Radiation: arm Severity of Pain-Max: moderate Severity of Pain-Current: mild Modifying Factors: Improves With: nothing Associated Symptoms: other (Numbness down the left leg) Prior Chest Pain/Cardiac Workup: no prior chest pain Nitro Today/Relief: no nitro taken today Aspirin Treatment Today: no aspirin today Allergies/Adverse Reactions: Penicillins Allergy (Mild, Verified 03/19/22 23:41) Home Medications: Amiodarone HCl 0.5 tab DAILY 06/17/21 [History] Hydrocodone/Acetaminophen [Hydrocodone-Acetamin 7.5-300] 1 ea PO [id number] PRN 06/17/21 [History] Metoprolol Succinate [Toprol Xl] 50 mg PO BID 08/25/21 [History] Albuterol 8 gm Mdi Hfa [Ventolin Hfa MDI] 2 puffs IH Q4H PRN 03/19/22 [History] Lorazepam 0.5 mg [Ativan 0.5 MG] 1 tab PO Q12H PRN PRN 03/19/22 [History] Hx Tetanus, Diphtheria Vaccination/Date Given: No Hx Influenza Vaccination/Date Given: No Hx Pneumococcal Vaccination/Date Given: No Travel Risk - Vaccine Status Have you recieved a Covid-19 vaccination: No - Review of Systems Constitutional: No Symptoms, No Fever, No Chills Eyes: No Symptoms Ears, Nose, & Throat: No Symptoms Respiratory: No Symptoms, No Cough, No Dyspnea Cardiac: No Symptoms, No Chest Pain, No Edema, No Syncope Abdominal/Gastrointestinal: No Symptoms, No Abdominal Pain, No Nausea, No Vomiting, No Diarrhea Genitourinary Symptoms: No Symptoms, No Dysuria Musculoskeletal: No Symptoms, No Back Pain, No Neck Pain Skin: No Symptoms, No Rash Neurological: No Symptoms, No Dizziness, No Focal Weakness, No Sensory Changes Psychological: No Symptoms Endocrine: No Symptoms Hematologic/Lymphatic: No Symptoms Immunological/Allergic: No Symptoms All Other Systems: Reviewed and Negative - Past Medical History Pertinent Past Medical History: Yes Neurological History: Migraines, Other ENT History: No Pertinent History Cardiac History: Hypertension Respiratory History: Asthma Endocrine Medical History: Hypothyroidism Musculoskeletal History: No Pertinent History GI Medical History: No Pertinent History History: No Pertinent History Psycho-Social History: Anxiety Male Reproductive Disorders: No Pertinent History - Past Surgical History Past Surgical History: Yes Neuro Surgical History: No Pertinent History Cardiac: No Pertinent History Respiratory: No Pertinent History Gastrointestinal: Hernia Repair Genitourinary: No Pertinent History Musculoskeletal: No Pertinent History Male Surgical History: No Pertinent History Other Surgical History: HERNIA - Social History Smoking Status: Current every day smoker How long have you smoked: 20 YEARS Exposure to second hand smoke: No Drug Use: none Patient Lives Alone: No - Nursing Vital Signs Nursing Vital Signs: Initial Vital Signs Temperature 97.4 F 03/19/22 23:35 Pulse Rate 70 03/19/22 23:35 Respiratory Rate 14 03/19/22 23:35 Blood Pressure 120/73 03/19/22 23:35 O2 Sat by Pulse Oximetry 97 03/19/22 23:35 Pain Scale Pain Intensity 0 - Physical Exam General Appearance: no apparent distress, alert Eye Exam: PERRL/EOMI, eyes nml inspection Ears, Nose, Throat Exam: normal ENT inspection, moist mucous membranes Neck Exam: normal inspection, non-tender, supple, full range of motion Respiratory Exam: normal breath sounds, lungs clear, No respiratory distress Cardiovascular Exam: regular rate/rhythm, normal heart sounds, normal peripheral pulses Gastrointestinal/Abdomen Exam: soft, No tenderness, No mass Back Exam: normal inspection, No CVA tenderness, No vertebral tenderness Extremity Exam: normal inspection, normal range of motion Neurologic Exam: alert, oriented x 3, cooperative, normal mood/affect, sensation nml, No motor deficits Skin Exam: normal color, warm, dry SpO2 Interpretation: normal SpO2: 97 O2 Delivery: Room Air - Course Nursing assessment & vital signs reviewed: Yes EKG Interpreted by Me: RATE (70), Sinus Rhythm (Trigeminy), NORMAL AXIS, NORMAL INTERVALS - CT Exams Head CT Interpretation: Tele-radiologist Report (Normal brain no ventriculomegaly. Ethmoid and bilateral maxillary sinusitis.) Ordered Tests: Active Orders 24 hr Category Date Time Status Beauty Operator Apprentice STAT Care 03/19/22 23:50 Active EKG-ER Only STAT Care 03/19/22 23:49 Active IV Insertion STAT Care 03/19/22 23:49 Active Pulse Oximetry (ED) STAT Care 03/19/22 23:49 Active CHEST 1 VIEW (PORTABLE) Routine Exams 03/20/22 00:16 Taken HEAD WITHOUT CONTRAST [CT] Stat Exams 03/19/22 23:52 Taken CBC W DIFF Stat Lab 03/19/22 23:47 Completed CMP Stat Lab 03/19/22 23:47 Completed TROPONIN Q4H Lab 03/19/22 23:47 Completed TROPONIN Q4H Lab 03/20/22 03:49 Ordered TROPONIN Q4H Lab 03/20/22 07:49 Ordered Urine Triage Profile Stat Lab 03/20/22 01:30 Completed Lab/Rad Data: Laboratory Result Diagrams 03/19/22 23:47 03/19/22 23:47 Laboratory Results 03/20/22 03/19/22 03/19/22 Range/Units 01:30 23:47 23:47 WBC 10.6 H (4.0-10.5) x10^3/uL RBC 4.10 (4.1-5.6) x10^6/uL Hgb 13.4 (12.5-18.0) g/dL Hct 40.7 L (42-50) % MCV 99.3 (78-100) fL MCH 32.7 H (26-32) pg MCHC 32.9 (32-36) g/dL RDW 13.7 (11.5-14.0) % Plt Count 199 (150-450) x10^3/uL MPV 10.3 (7.5-11.0) fL Gran % 73.8 H (36.0-66.0) % Immature Gran % (Auto) 0.5 H (0.00-0.4) % Nucleat RBC Rel Count 0.0 (0.00-0.1) % Eos # (Auto) 0.09 (0-0.5) x10^3/uL Immature Gran # (Auto) 0.05 H (0.00-0.03) x10^3u/L Absolute Lymphs (auto) 1.92 (1.0-4.6) x10^3/uL Absolute Monos (auto) 0.68 (0.0-1.3) x10^3/uL Absolute Nucleated RBC 0.00 (0.00-0.01) x10^3u/L Lymphocytes % 18.2 L (24.0-44.0) % Monocytes % 6.4 (0.0-12.0) % Eosinophils % 0.9 (0.00-5.0) % Basophils % 0.2 (0.0-0.4) % Absolute Granulocytes 7.79 H (1.4-6.9) x10^3/uL Basophils # 0.02 (0-0.4) x10^3/uL Sodium 138 (137-145) mmol/L Potassium 3.4 L (3.5-5.1) mmol/L Chloride 106 (98-107) mmol/L Carbon Dioxide 26 (22-30) mmol/L Anion Gap 9.2 (5-15) MEQ/L BUN 10 (9-20) mg/dL Creatinine 0.75 (0.66-1.25) mg/dL Estimated GFR > 60.0 ML/MIN Glucose 90 (74-106) mg/dL Calcium 8.8 (8.4-10.2) mg/dL Total Bilirubin 0.30 (0.2-1.3) mg/dL AST 26 (17-59) U/L ALT 37 (0-50) U/L Alkaline Phosphatase 58 (38-126) U/L Troponin I < 0.012 (0.000-0.034) ng/mL Serum Total Protein 7.3 (6.3-8.2) g/dL Albumin 4.1 (3.5-5.0) g/dL Urine Opiates Level NEGATIVE (NEGATIVE) Ur Methadone NEGATIVE (NEGATIVE) Urine Barbiturates NEGATIVE (NEGATIVE) Ur Phencyclidine (PCP) NEGATIVE (NEGATIVE) Urine Amphetamine NEGATIVE (NEGATIVE) U Benzodiazepine Level NEGATIVE (NEGATIVE) Urine Cocaine NEGATIVE (NEGATIVE) Urine Marijuana (THC) POSITIVE (NEGATIVE) - Progress Progress: improved Air Movement: good Progress Note: Patient reassessed. He is asymptomatic. Telemetry neuro evaluated patient. They advised admission for further evaluation and treatment including MRI/MRA. Comfortably. Patient states that he will not stay in the hospital as he has obligations/he needs to work. Patient requesting discharge at this time. Patient understands the importance of further evaluation and treatment. Patient is of sound mind. Patient is appropriate to make informed and independent medical decisions. Patient understands that leaving AGAINST MEDICAL ADVICE can result in delayed diagnosis, increased risk of morbidity, mortality, short and long-term disability including . In spite of these risks, patient has decided to leave AGAINST MEDICAL ADVICE. Patient understands that he/she may return to our ED at any point if he or she reconsiders. Patient agrees to follow-up with his or her primary care doctor within 48 hours for reevaluation. Patient voices no other complaints or concerns at this time. We will release patient AGAINST MEDICAL ADVICE per their request. Portions of this note were created with voice recognition technology. There may be grammatical, spelling, punctuation or sound alike errors 03/20/22 02:46 Blood Culture(s) Obtained: No Antibiotics given: No Counseled pt/family regarding: lab results, diagnosis, rad results - Departure Departure Disposition: AMA Clinical Impression: Marijuana use, Chest pain, Paresthesias Condition: Stable Critical Care Time: No Referrals: ELMA BHAKTA [Primary Care Provider] - Follow up/PCP as directed
[2022-03-20 00:09] LABS: Absolute Neutrophil Ct (ANC) 7.79 x10^3/uL (1.4-6.9); Basophil (Absolute #) 0.02 x10^3/uL (0-0.4); Eosinophil % 0.9 % (0.00-5.0); Eosinophil (Absolute #) 0.09 x10^3/uL (0-0.5); Hematocrit 40.7 % (42-50); Hemoglobin 13.4 g/dL (12.5-18.0); Lymphocyte (Absolute #) 1.92 x10^3/uL (1.0-4.6); Lymphocytes % 18.2 % (24.0-44.0); Mean Cell Volume 99.3 fL (78-100); Mean Corpuscular Hemoglobin 32.7 pg (26-32); Mean Corpuscular Hgb Concent. 32.9 g/dL (32-36); Mean Platelet Volume 10.3 fL (7.5-11.0); Monocyte (Absolute #) 0.68 x10^3/uL (0.0-1.3); Monocytes % 6.4 % (0.0-12.0); Neutrophil % 73.8 % (36.0-66.0); Platelet Count 199 x10^3/uL (150-450); Red Cell Distribution Width 13.7 % (11.5-14.0); White Blood Count 10.6 x10^3/uL (4.0-10.5)
[2022-03-20 00:35] LABS: ALBUMIN 4.1 g/dL (3.5-5.0); ALKALINE PHOSPHATASE 58 U/L (38-126); ANION GAP 9.2 MEQ/L (5-15); BLOOD UREA NITROGEN 10 mg/dL (9-20); CHLORIDE 106 mmol/L (98-107); Calcium 8.8 mg/dL (8.4-10.2); Carbon Dioxide 26 mmol/L (22-30); Creatinine 1 0.75 mg/dL (0.66-1.25); EST GLOMERULAR FILTRATION RATE > 60.0 ML/MIN; Glucose 90 mg/dL (74-106); Potassium 3.4 mmol/L (3.5-5.1); SGOT/AST 26 U/L (17-59); SGPT/ALT 37 U/L (0-50); SODIUM 138 mmol/L (137-145); TROPONIN < 0.012 ng/mL (0.000-0.034); Total Protein 7.3 g/dL (6.3-8.2)
[2022-03-20 01:12] VITALS: PULSE 63
[2022-03-20 01:53] LABS: Amphetamine,Urine NEGATIVE (NEGATIVE); Barbiturate,Urine NEGATIVE (NEGATIVE); Benzodiazepine,Urine NEGATIVE (NEGATIVE); Cocaine,Urine NEGATIVE (NEGATIVE); Methadone,Urine NEGATIVE (NEGATIVE); Opiate,Urine NEGATIVE (NEGATIVE); PCP,Urine NEGATIVE (NEGATIVE); THC,Urine POSITIVE (NEGATIVE)
[2022-03-20 02:12] VITALS: BP 123/68
[2022-03-20 02:13] VITALS: O2SAT 97
--- NOTE | 2022-03-20 08:47 | XRAY ---
Indication: Left body weakness. Left eye blurry vision. Stroke. Multiple contiguous axial images obtained through the head without contrast. Comparison: August 07, 2021 Normal appearing brain parenchyma, ventricles, and bony calvarium. Again near-complete opacification left maxillary sinus with new mucosal thickening both ethmoid and right maxillary sinuses. Mastoid air cells are clear. Impression: Worsening paranasal sinus disease. Remaining CT head without contrast exam is again normal. Comment: Preliminary interpretation made by [facility]. No critical discrepancy.
--- NOTE | 2022-03-20 09:03 | XRAY ---
Indication: Chest pain. Comparison: November 22, 2021 Portable apical lordotic chest again demonstrates normal heart and lungs with incidental right apical calcified granuloma. Bony thorax intact. No new/acute findings.
== END 2022-03-20 02:50 | disposition left against medical advice (07) ==
LOC: ED 22:56
DX: R07.9 Chest pain, unspecified (principal); R20.2 Paresthesia of skin; F12.90 Cannabis use, unspecified, uncomplicated; I10 Essential (primary) hypertension; Z79.891 Long term (current) use of opiate analgesic; Z79.899 Other long term (current) drug therapy; Z28.310 Unvaccinated for COVID-19; Z72.0 Tobacco use
CPT/HCPCS: 36000; 36415; 70450; 71045; 80053; 80307; 84484; 85025; 93005; 93041; 94760; 99284; Q3014

== ENCOUNTER 2022-12-15 14:03 | Emergency (ER) | payer OTHER ==
--- NOTE | 2022-12-15 14:15 | ERPHSYRPT ---
- History of Present Illness Time Seen by Provider: 12/15/22 14:15 Historian: patient Exam Limitations: no limitations Physician History: This is a 47-year-old white male patient of Dr. Mcqueen who presents with chest pain that began in the substernal central chest area that is described as a burning sensation that radiates intermittently up his left neck left shoulder r ight arm and down both his legs. Patient consumed bourbon last evening and this morning. He smells of alcohol. Patient does have a history of atrial fibrillation on amiodarone and metoprolol. He states he is not on any anticoagulation therapy. Although he did take 3 baby aspirin prior to arrival. Patient has a history of anxiety issues, asthma, migraine headaches and hypertension. Patient has not seen his shellfish manager in over a year. He does not recall the female shellfish manager's name. Timing/Duration: today Activities at Onset: none Quality: burning Location: substernal, central Chest Pain Radiation: neck (Left), arm (Bilateral) Severity of Pain-Max: mild Severity of Pain-Current: mild Modifying Factors: Improves With: other (Real ingestion called him down per his report) Associated Symptoms: No nausea, No vomiting, No palpitations, No heartburn, No shortness of breath, No hurts to breathe, No headache, No dizziness Nitro Today/Relief: no nitro taken today Aspirin Treatment Today: 81 mg x 3, provided at home Allergies/Adverse Reactions: Penicillins Allergy (Mild, Verified 12/15/22 14:11) Home Medications: Amiodarone HCl 0.5 tab PO DAILY 06/17/21 [History] Metoprolol Succinate [Toprol Xl] 1 tab PO DAILY 08/25/21 [History] Albuterol 8 gm Mdi Hfa [Ventolin Hfa MDI] 2 puffs IH Q4H PRN 03/19/22 [History] Hx Tetanus, Diphtheria Vaccination/Date Given: No Hx Influenza Vaccination/Date Given: No Hx Pneumococcal Vaccination/Date Given: No Travel Risk - International Travel Have you traveled outside of the country in past 3 weeks: No - Coronavirus Screening Are you exhibiting any of the following symptoms?: No Close contact with a COVID-19 positive Pt in past 14-21 Days: No - Vaccine Status Have you recieved a Covid-19 vaccination: No - Review of Systems Constitutional: No Symptoms Eyes: No Symptoms Ears, Nose, & Throat: No Symptoms Respiratory: No Symptoms Cardiac: Chest Pain Abdominal/Gastrointestinal: No Symptoms Genitourinary Symptoms: No Symptoms Musculoskeletal: No Symptoms Skin: No Symptoms Neurological: No Symptoms Psychological: Anxiety Endocrine: No Symptoms Hematologic/Lymphatic: No Symptoms Immunological/Allergic: No Symptoms All Other Systems: Reviewed and Negative - Past Medical History Pertinent Past Medical History: Yes Neurological History: Migraines, Other ENT History: No Pertinent History Cardiac History: Hypertension Respiratory History: Asthma Endocrine Medical History: Hypothyroidism Musculoskeletal History: No Pertinent History GI Medical History: No Pertinent History History: No Pertinent History Psycho-Social History: Anxiety Male Reproductive Disorders: No Pertinent History - Past Surgical History Past Surgical History: Yes Neuro Surgical History: No Pertinent History Cardiac: No Pertinent History Respiratory: No Pertinent History Gastrointestinal: Hernia Repair Genitourinary: No Pertinent History Musculoskeletal: No Pertinent History Male Surgical History: No Pertinent History Other Surgical History: HERNIA - Social History Smoking Status: Current every day smoker How long have you smoked: 20 YEARS Exposure to second hand smoke: No Drug Use: none Patient Lives Alone: No - Nursing Vital Signs Nursing Vital Signs: Initial Vital Signs Temperature 98 F 12/15/22 14:04 Pulse Rate 72 12/15/22 14:04 Respiratory Rate 16 12/15/22 14:04 Blood Pressure 116/75 12/15/22 14:04 O2 Sat by Pulse Oximetry 97 12/15/22 14:04 Pain Scale Pain Intensity 6 - Physical Exam General Appearance: no apparent distress, alert, anxiety Eye Exam: PERRL/EOMI, eyes nml inspection Ears, Nose, Throat Exam: normal ENT inspection, moist mucous membranes Neck Exam: normal inspection, non-tender, supple, full range of motion Respiratory Exam: normal breath sounds, lungs clear, airway intact, No chest tenderness (Chest pain has resolved at this time), No respiratory distress Cardiovascular Exam: regular rate/rhythm, normal heart sounds, normal peripheral pulses Gastrointestinal/Abdomen Exam: soft, normal bowel sounds, No tenderness Rectal Exam: not done Back Exam: normal inspection, normal range of motion, No CVA tenderness, No vertebral tenderness Extremity Exam: normal inspection, normal range of motion, pelvis stable Neurologic Exam: alert, oriented x 3, cooperative, pipeline superintendent division II-XII nml as tested, normal mood/affect, nml cerebellar function, nml station & gait, sensation nml Skin Exam: normal color, warm, dry SpO2 Interpretation: normal O2 Delivery: Room Air - Course Nursing assessment & vital signs reviewed: Yes EKG Interpreted by Me: RATE (71), Sinus Rhythm, NORMAL AXIS, NORMAL INTERVALS, NORMAL QRS, NORMAL ST-T, Other (No acute ischemic changes on today's twelve-lead EKG.) Ordered Tests: Active Orders 24 hr Category Date Time Status Cad Detailer STAT Care 12/15/22 14:17 Active EKG-ER Only STAT Care 12/15/22 14:17 Active IV Insertion STAT Care 12/15/22 14:17 Active Pulse Oximetry (ED) STAT Care 12/15/22 14:17 Active CHEST 1 VIEW (PORTABLE) Stat Exams 12/15/22 14:17 Completed CHEST WITH CONTRAST [CT] Stat Exams 12/15/22 15:48 Completed CBC W DIFF Stat Lab 12/15/22 14:45 Completed CMP Stat Lab 12/15/22 14:25 Completed D-DIMER QUANTITATIVE Stat Lab 12/15/22 14:25 Completed MAGNESIUM Stat Lab 12/15/22 14:25 Completed TROPONIN Q4H Lab 12/15/22 14:25 Completed TROPONIN Q4H Lab 12/15/22 18:30 Ordered TROPONIN Q4H Lab 12/15/22 22:30 Ordered Medication Summary Discontinued Medications Generic Name Dose Route Start Last Admin Trade Name Freq PRN Reason Stop Dose Admin Aspirin 324 mg 12/15/22 14:17 12/15/22 15:11 Aspirin 81 Mg Tab.Chew PO 12/15/22 14:18 81 mg STAT ONE Administration Aspirin Confirm 12/15/22 15:10 Aspirin 81 Mg Tab.Chew Administered 12/15/22 15:11 Dose 81 mg .ROUTE .STK-MED ONE Sodium Chloride 500 mls @ 500 mls/hr 12/15/22 15:48 12/15/22 17:19 Sodium Chloride 0.9% 500 Ml IV 12/15/22 16:47 Infused .Q1H ONE Infusion Sodium Chloride Confirm 12/15/22 16:07 Sodium Chloride 0.9% 500 Ml Administered 12/15/22 16:08 Dose 500 mls @ ud IV .STK-MED ONE Lab/Rad Data: Laboratory Result Diagrams 12/15/22 14:45 12/15/22 14:25 Laboratory Results 12/15/22 12/15/22 12/15/22 Range/Units 14:45 14:25 14:25 WBC 6.2 (4.0-10.5) x10^3/uL RBC 4.21 (4.1-5.6) x10^6/uL Hgb 14.6 (12.5-18.0) g/dL Hct 42.5 (42-50) % MCV 101.0 H (78-100) fL MCH 34.7 H (26-32) pg MCHC 34.4 (32-36) g/dL RDW 15.0 H (11.5-14.0) % Plt Count 177 (150-450) x10^3/uL MPV 9.5 (7.5-11.0) fL Gran % 64.3 (36.0-66.0) % Immature Gran % (Auto) 0.3 (0.00-0.4) % Nucleat RBC Rel Count 0.0 (0.00-0.1) % Eos # (Auto) 0.22 (0-0.5) x10^3/uL Immature Gran # (Auto) 0.02 (0.00-0.03) x10^3u/L Absolute Lymphs (auto) 1.39 (1.0-4.6) x10^3/uL Absolute Monos (auto) 0.57 (0.0-1.3) x10^3/uL Absolute Nucleated RBC 0.00 (0.00-0.01) x10^3u/L Lymphocytes % 22.3 L (24.0-44.0) % Monocytes % 9.1 (0.0-12.0) % Eosinophils % 3.5 (0.00-5.0) % Basophils % 0.5 (0.0-0.4) % Absolute Granulocytes 4.01 (1.4-6.9) x10^3/uL Basophils # 0.03 (0-0.4) x10^3/uL D-Dimer 0.61 H* (0.0-0.50) mg/L Sodium (137-145) mmol/L Potassium (3.5-5.1) mmol/L Chloride (98-107) mmol/L Carbon Dioxide (22-30) mmol/L Anion Gap (5-15) MEQ/L BUN (9-20) mg/dL Creatinine (0.66-1.25) mg/dL Estimated GFR ML/MIN Glucose (74-106) mg/dL Calcium (8.4-10.2) mg/dL Magnesium (1.6-2.3) mg/dL Total Bilirubin (0.2-1.3) mg/dL AST (17-59) U/L ALT (0-50) U/L Alkaline Phosphatase (38-126) U/L Troponin I < 0.012 (0.000-0.034) ng/mL Serum Total Protein (6.3-8.2) g/dL Albumin (3.5-5.0) g/dL 12/15/22 Range/Units 14:25 WBC (4.0-10.5) x10^3/uL RBC (4.1-5.6) x10^6/uL Hgb (12.5-18.0) g/dL Hct (42-50) % MCV (78-100) fL MCH (26-32) pg MCHC (32-36) g/dL RDW (11.5-14.0) % Plt Count (150-450) x10^3/uL MPV (7.5-11.0) fL Gran % (36.0-66.0) % Immature Gran % (Auto) (0.00-0.4) % Nucleat RBC Rel Count (0.00-0.1) % Eos # (Auto) (0-0.5) x10^3/uL Immature Gran # (Auto) (0.00-0.03) x10^3u/L Absolute Lymphs (auto) (1.0-4.6) x10^3/uL Absolute Monos (auto) (0.0-1.3) x10^3/uL Absolute Nucleated RBC (0.00-0.01) x10^3u/L Lymphocytes % (24.0-44.0) % Monocytes % (0.0-12.0) % Eosinophils % (0.00-5.0) % Basophils % (0.0-0.4) % Absolute Granulocytes (1.4-6.9) x10^3/uL Basophils # (0-0.4) x10^3/uL D-Dimer (0.0-0.50) mg/L Sodium 139 (137-145) mmol/L Potassium 3.7 (3.5-5.1) mmol/L Chloride 105 (98-107) mmol/L Carbon Dioxide 23 (22-30) mmol/L Anion Gap 14.9 (5-15) MEQ/L BUN 11 (9-20) mg/dL Creatinine 0.67 (0.66-1.25) mg/dL Estimated GFR > 60.0 ML/MIN Glucose 117 H (74-106) mg/dL Calcium 8.8 (8.4-10.2) mg/dL Magnesium 2.0 (1.6-2.3) mg/dL Total Bilirubin 0.40 (0.2-1.3) mg/dL AST 70 H (17-59) U/L ALT 77 H (0-50) U/L Alkaline Phosphatase 74 (38-126) U/L Troponin I (0.000-0.034) ng/mL Serum Total Protein 7.5 (6.3-8.2) g/dL Albumin 4.4 (3.5-5.0) g/dL - Progress Progress: re-examined, unchanged Air Movement: good Progress Note: 12/15/22 15:12 Chest x-ray was interpreted by the radiologist. There is no evidence of any acute cardiopulmonary process. This patient's medical issue is 1 of moderate complexity. The patient's level of complexity is based on review of the patient's past medical history, review of the patient's medication list, review of the patient's drug allergy list, history of present illness and physical findings on examination. The work-up in this patient includes chest x-ray, twelve-lead EKG, CBC, D-dimer, troponin level, CBC and CMP. 12/15/22 17:39 CT scan of the chest with contrast shows no pulmonary embolus. There is 2 right upper lobe nodules present with some mediastinal adenopathy. (I discussed these findings with the patient. He is to follow-up with his primary care provider) Blood Culture(s) Obtained: No Antibiotics given: No Counseled pt/family regarding: lab results, diagnosis, need for follow-up, rad results Medical Desision Making - Diagnostic Testing Diagnostic test were ordered, analyzed, and reviewed by me: Yes Radiological Interpretation: Reviewed by me, Teleradiologist Report - Risk of complications Low Risk: Low risk of morbidity from additional dx testing or treatment - Departure Departure Disposition: Home Clinical Impression: Chest pain, Apical lung nodule Condition: Stable Critical Care Time: No Referrals: AURORA MCQUEEN MD [Primary Care Provider] - Follow up/PCP as directed Additional Instructions: Drink plenty of fluids. Avoid alcohol ingestion. Avoid ingestion of fatty greasy spicy foods. Take your medications as prescribed. Avoid exposure to any type of smoke. Follow-up with your shellfish manager by phone on 12/18/2022, for further evaluation and management from the cardiac standpoint. Call your primary care provider on 12/18/2022 to further discuss the findings of the right upper lung lobe nodules.
[2022-12-15] MEDS ORDERED: BABY ASPIRIN 81 MG CHEW PO ONE (14:17)
[2022-12-15 14:32] VITALS: TEMP 98
[2022-12-15 15:00] LABS: Absolute Neutrophil Ct (ANC) 4.01 x10^3/uL (1.4-6.9); BASOPHIL % 0.5 % (0.0-0.4); Basophil (Absolute #) 0.03 x10^3/uL (0-0.4); Eosinophil % 3.5 % (0.00-5.0); Eosinophil (Absolute #) 0.22 x10^3/uL (0-0.5); Hematocrit 42.5 % (42-50); Hemoglobin 14.6 g/dL (12.5-18.0); IMMATURE GRAN # 0.02 x10^3u/L (0.00-0.03); IMMATURE GRAN % 0.3 % (0.00-0.4); Lymphocyte (Absolute #) 1.39 x10^3/uL (1.0-4.6); Lymphocytes % 22.3 % (24.0-44.0); Mean Corpuscular Hemoglobin 34.7 pg (26-32); Mean Corpuscular Hgb Concent. 34.4 g/dL (32-36); Mean Platelet Volume 9.5 fL (7.5-11.0); Monocyte (Absolute #) 0.57 x10^3/uL (0.0-1.3); Monocytes % 9.1 % (0.0-12.0); Neutrophil % 64.3 % (36.0-66.0); Platelet Count 177 x10^3/uL (150-450); Red Blood Count 4.21 x10^6/uL (4.1-5.6); White Blood Count 6.2 x10^3/uL (4.0-10.5)
[2022-12-15] MEDS ORDERED: BABY ASPIRIN 81 MG CHEW ONE (15:10)
--- NOTE | 2022-12-15 15:10 | XRAY ---
CLINICAL HISTORY:Chest pain COMPARISON:None. TECHNIQUE:X-ray of the chest, AP upright portable view. FINDINGS: No consolidation noted The rounded calcified density noted in the apical region of the right lung measures 0.6-0.6 cm and could be calcified granuloma. Normal configuration of the mediastinum. Mild bilateral perihilar vascular congestion was seen. The cardiac size is normal. Costophrenic and cardiophrenic angles are clear. The bony thorax is unremarkable. IMPRESSION: No active pulmonary pathology was detected. Electronically Signed by: Seda Bazzi MD. (12/15/2022 14:10:09 RISK INTERN)
[2022-12-15 15:17] LABS: ALBUMIN 4.4 g/dL (3.5-5.0); ALKALINE PHOSPHATASE 74 U/L (38-126); ANION GAP 14.9 MEQ/L (5-15); BLOOD UREA NITROGEN 11 mg/dL (9-20); CHLORIDE 105 mmol/L (98-107); Calcium 8.8 mg/dL (8.4-10.2); Carbon Dioxide 23 mmol/L (22-30); Creatinine 1 0.67 mg/dL (0.66-1.25); EST GLOMERULAR FILTRATION RATE > 60.0 ML/MIN; Glucose 117 mg/dL (74-106); Potassium 3.7 mmol/L (3.5-5.1); SGOT/AST 70 U/L (17-59); SGPT/ALT 77 U/L (0-50); SODIUM 139 mmol/L (137-145); Total Protein 7.5 g/dL (6.3-8.2)
[2022-12-15] MEDS ORDERED: Sodium Chloride 0.9% 500 ML 500 ML IV ONE ×2 (15:48→16:07)
[2022-12-15 17:13] VITALS: BP 114/74; PULSE 55; RESP 12; O2SAT 94
--- NOTE | 2022-12-15 17:33 | XRAY ---
CLINICAL HISTORY:CP; elevated D-dimer COMPARISON:CT done on 11/22/2021 TECHNIQUE:Contiguous 3.[address] images of the chest were acquired with the administration of intravenous contrast. Coronal and sagittal reconstructions were obtained. Total exam DLP: 741.97 FINDINGS: Bilateral pulmonary arteries are normally opacified with no evidence of any thrombus in any of them till their second-order branches. The scanned pulmonary parenchyma shows two small nodules. One in the apical segment of the right upper lobe measuring 7 x 8.6mm and another tiny faint nodule in the anterior segment of the left upper lobe measuring 3mm . Few atelectatic bands are seen in bilateral lower lung lobes. Few enlarged lymph nodes are seen in the mediastinum. Largest in subcarinal location with internal calcification measuring 1.6 x 1.5 cm in size. No definite consolidative lesions. No free or encysted pleural effusion. Heart size is normal, and there is no pericardial effusion. There is no definite mass lesion in the chest wall. Degenerative changes are seen in the spine with mild dextroscoliosis. Two renal cortical cysts are seeen in the left kidney. One at the upper pole measures 1.2 x 1.1 cm and other at mid pole measures 1.1 x 1.0cm with no internal septations, calcifications ar solid components. The rest of the scanned upper abdomen is unremarkable. IMPRESSION: 1. No pulmonary embolism. 2. Two nodules are seen in the apical segment of the right upper lobe and the anterior segment of left upper lobe with some mediastinal lymphadenopathy with internal calcification which can be appreciated in a previous study dated 11/22/2021 ... likely representing a chronic granulomatous process. However, clinical correlation and follow-up is suggested. 3. Mild atelectasis in lower lobes. 4. Left simple Bosniak type 1 renal cortical cysts. 5. Degenerative changes in spine. Electronically Signed by: Seda Bazzi MD. (12/15/2022 16:32:27 VOCATIONAL TECHNICAL EDUCATION TEACHER)
== END 2022-12-15 18:02 | disposition home or self-care (01) ==
LOC: ED 14:03
DX: R07.9 Chest pain, unspecified (principal); R91.1 Solitary pulmonary nodule; I10 Essential (primary) hypertension; Z79.899 Other long term (current) drug therapy; Z28.310 Unvaccinated for COVID-19; Z72.0 Tobacco use
CPT/HCPCS: 36000; 36415; 71045; 71260; 80053; 83735; 84484; 85025; 85379; 93005; 93041; 94760; 99284; A9270-GY

== ENCOUNTER 2023-06-24 15:03 | Emergency (ER) | payer SELFPAY ==
[2023-06-24 15:30] VITALS: TEMP 98.4
--- NOTE | 2023-06-24 16:01 | ERPHSYRPT ---
- History of Present Illness Time Seen by Provider: 06/24/23 16:00 Source: patient Patient Subjective Stated Complaint: C/O "stopping breathing" in his sleep last night. Patient states earlier today his B/P was 165/112 and his Pulse was 116. He indicates that his bulk materials handling plant operator, Dr. Sorin Castellon took him off of his amiodarone a few months ago stating that he doesn't need it. Triage Nursing Assessment: Patient ambulated back to ER without difficulties. He is alert and oriented. No SOB noted. Skin tone normal. CINTHIA WNL. Asked patient why he believes that he quits breathing in his sleep and he states that he wakes up gasping at times. Current B/P is normal at 112/80 with a pulse of 81. Physician History: 48yo m presents for episode of sob, heart palpitations, near syncope that occurred this AM around 8h SAMPLE PASTER. Pt asymptomatic at time of exam. Pt reports he has hx of afib, was on amiodarone for around 7yrs and was discontinued by his bulk materials handling plant operator in 03/07. Pt also reports he has episodes in which he wakes up gasping for air at night, reports he had an episode like this last night. Pt is worried that his afib has come back, reports anxiety regarding his heart condition. Pt denies any cp, soa, n/v/abdominal pain, fevers, chills, [place] at time of exam. Timing/Duration: today, hour(s) (8h SAMPLE PASTER) Activities at Onset: none Severity of Dyspnea-Max: mild Severity of Dyspnea-Current: mild Allergies/Adverse Reactions: Penicillins Allergy (Mild, Verified 06/24/23 15:23) Home Medications: Metoprolol Succinate [Toprol Xl] 1 tab PO DAILY 08/25/21 [History] Albuterol 8 gm Mdi Hfa [Ventolin Hfa MDI] 2 puffs IH Q4H PRN 03/19/22 [History] Buprenorphine HCl/Naloxone HCl [Buprenorphine-Nalox 8-2 mg Tab] 2 tab PO BID 06/24/23 [History] Buspirone HCl 5 mg [Buspar 5 mg] 10 mg PO BID 06/24/23 [History] Trazodone HCl 1 tab PO HS 06/24/23 [History] Hx Tetanus, Diphtheria Vaccination/Date Given: Yes Hx Influenza Vaccination/Date Given: No Hx Pneumococcal Vaccination/Date Given: No Immunizations Up to Date: Yes Travel Risk - International Travel Have you traveled outside of the country in past 3 weeks: No - Coronavirus Screening Are you exhibiting any of the following symptoms?: No Close contact with a COVID-19 positive Pt in past 14-21 Days: No - Vaccine Status Have you recieved a Covid-19 vaccination: No - Review of Systems Constitutional: No Symptoms Respiratory: Dyspnea, No Cough, No Dyspnea on Exertion (PACHECO), No Wheezing Cardiac: Palpitations, No Chest Pain, No Syncope Abdominal/Gastrointestinal: No Symptoms Psychological: Alcohol Abuse, Anxiety, No Depression - Past Medical History Pertinent Past Medical History: Yes Neurological History: Migraines, Other ENT History: No Pertinent History Cardiac History: Arrhythmia, Hypertension Respiratory History: Asthma Endocrine Medical History: Hypothyroidism Musculoskeletal History: No Pertinent History GI Medical History: Hernia History: No Pertinent History Psycho-Social History: Anxiety Male Reproductive Disorders: No Pertinent History Other Medical History: Motor Boss: Dr. Sorin Castellon - Past Surgical History Past Surgical History: Yes Neuro Surgical History: No Pertinent History Cardiac: Cardiac Catheterization Respiratory: No Pertinent History Gastrointestinal: Hernia Repair Genitourinary: No Pertinent History Musculoskeletal: No Pertinent History Male Surgical History: No Pertinent History Other Surgical History: HERNIA - Social History Smoking Status: Current every day smoker How long have you smoked: 20 YEARS Exposure to second hand smoke: No Drug Use: none Patient Lives Alone: No - Nursing Vital Signs Nursing Vital Signs: Initial Vital Signs Temperature 98.4 F 06/24/23 15:20 Pulse Rate 79 06/24/23 15:20 Respiratory Rate 14 06/24/23 15:20 Blood Pressure 112/80 06/24/23 15:20 O2 Sat by Pulse Oximetry 98 06/24/23 15:20 Pain Scale Pain Intensity 0 - Physical Exam General Appearance: no apparent distress, alert Respiratory Exam: normal breath sounds, lungs clear, airway intact, No chest tenderness, No respiratory distress Cardiovascular/Chest Exam: normal heart sounds, normal peripheral pulses, irregular, extra beats Abdominal/Gastrointestinal Exam: soft, normal bowel sounds, No tenderness Neurologic Exam: alert, oriented x 3, cooperative, normal mood/affect, sensation nml SpO2 Interpretation: normal SpO2: 98 O2 Delivery: Room Air - Course EKG Interpreted by Me: RATE (75), Sinus Rhythm, Other (multiple PVCs; qtcb 476; not suggestive of acute ischemia) Ordered Tests: Active Orders 24 hr Category Date Time Status CHEST 2 VIEWS (PA AND LAT) Stat Exams 06/24/23 15:59 Completed CBC W DIFF Stat Lab 06/24/23 16:00 Completed CMP Stat Lab 06/24/23 16:00 Completed PROTIME WITH INR Stat Lab 06/24/23 16:00 Completed TROPONIN Q4H Lab 06/24/23 16:00 Completed TROPONIN Q4H Lab 06/24/23 20:00 Ordered TROPONIN Q4H Lab 06/25/23 00:00 Ordered Urine Triage Profile Stat Lab 06/24/23 17:32 Completed Lab/Rad Data: Laboratory Result Diagrams 06/24/23 16:00 06/24/23 16:00 Laboratory Results 06/24/23 06/24/23 06/24/23 Range/Units 17:32 16:00 16:00 WBC (4.0-10.5) x10^3/uL RBC (4.1-5.6) x10^6/uL Hgb (12.5-18.0) g/dL Hct (42-50) % MCV (78-100) fL MCH (26-32) pg MCHC (32-36) g/dL RDW (11.5-14.0) % Plt Count (150-450) x10^3/uL MPV (7.5-11.0) fL Gran % (36.0-66.0) % Immature Gran % (Auto) (0.00-0.4) % Nucleat RBC Rel Count (0.00-0.1) % Eos # (Auto) (0-0.5) x10^3/uL Immature Gran # (Auto) (0.00-0.03) x10^3u/L Absolute Lymphs (auto) (1.0-4.6) x10^3/uL Absolute Monos (auto) (0.0-1.3) x10^3/uL Absolute Nucleated RBC (0.00-0.01) x10^3u/L Lymphocytes % (24.0-44.0) % Monocytes % (0.0-12.0) % Eosinophils % (0.00-5.0) % Basophils % (0.0-0.4) % Absolute Granulocytes (1.4-6.9) x10^3/uL Basophils # (0-0.4) x10^3/uL PT 9.9 (9.4-12.5) SECONDS INR 0.90 (0.8-3.0) Sodium (135-145) mmol/L Potassium (3.5-5.1) mmol/L Chloride (98-107) mmol/L Carbon Dioxide (22-30) mmol/L Anion Gap (5-15) MEQ/L BUN (9-20) mg/dL Creatinine (0.66-1.25) mg/dL Estimated GFR ML/MIN Glucose (74-106) mg/dL Calcium (8.4-10.2) mg/dL Total Bilirubin (0.2-1.3) mg/dL AST (17-59) U/L ALT (0-50) U/L Alkaline Phosphatase (38-126) U/L Troponin I < 0.012 (0.000-0.034) ng/mL Serum Total Protein (6.3-8.2) g/dL Albumin (3.5-5.0) g/dL Urine Opiates Level NEGATIVE (NEGATIVE) Ur Methadone NEGATIVE (NEGATIVE) Urine Barbiturates NEGATIVE (NEGATIVE) Ur Phencyclidine (PCP) NEGATIVE (NEGATIVE) Urine Amphetamine NEGATIVE (NEGATIVE) U Benzodiazepine Level POSITIVE A (NEGATIVE) Urine Cocaine NEGATIVE (NEGATIVE) Urine Marijuana (THC) NEGATIVE (NEGATIVE) 06/24/23 06/24/23 Range/Units 16:00 16:00 WBC 5.5 (4.0-10.5) x10^3/uL RBC 3.91 L (4.1-5.6) x10^6/uL Hgb 14.2 (12.5-18.0) g/dL Hct 41.3 L (42-50) % MCV 105.6 H (78-100) fL MCH 36.3 H (26-32) pg MCHC 34.4 (32-36) g/dL RDW 14.0 (11.5-14.0) % Plt Count 128 L (150-450) x10^3/uL MPV 9.8 (7.5-11.0) fL Gran % 65.7 (36.0-66.0) % Immature Gran % (Auto) 0.2 (0.00-0.4) % Nucleat RBC Rel Count 0.0 (0.00-0.1) % Eos # (Auto) 0.24 (0-0.5) x10^3/uL Immature Gran # (Auto) 0.01 (0.00-0.03) x10^3u/L Absolute Lymphs (auto) 1.11 (1.0-4.6) x10^3/uL Absolute Monos (auto) 0.49 (0.0-1.3) x10^3/uL Absolute Nucleated RBC 0.00 (0.00-0.01) x10^3u/L Lymphocytes % 20.1 L (24.0-44.0) % Monocytes % 8.9 (0.0-12.0) % Eosinophils % 4.4 (0.00-5.0) % Basophils % 0.7 (0.0-0.4) % Absolute Granulocytes 3.62 (1.4-6.9) x10^3/uL Basophils # 0.04 (0-0.4) x10^3/uL PT (9.4-12.5) SECONDS INR (0.8-3.0) Sodium 141 (135-145) mmol/L Potassium 3.8 (3.5-5.1) mmol/L Chloride 108 H (98-107) mmol/L Carbon Dioxide 25 (22-30) mmol/L Anion Gap 12.2 (5-15) MEQ/L BUN 12 (9-20) mg/dL Creatinine 0.59 L (0.66-1.25) mg/dL Estimated GFR 120.4 ML/MIN Glucose 105 (74-106) mg/dL Calcium 8.7 (8.4-10.2) mg/dL Total Bilirubin 0.30 (0.2-1.3) mg/dL AST 77 H (17-59) U/L ALT 70 H (0-50) U/L Alkaline Phosphatase 73 (38-126) U/L Troponin I (0.000-0.034) ng/mL Serum Total Protein 6.9 (6.3-8.2) g/dL Albumin 3.9 (3.5-5.0) g/dL Urine Opiates Level (NEGATIVE) Ur Methadone (NEGATIVE) Urine Barbiturates (NEGATIVE) Ur Phencyclidine (PCP) (NEGATIVE) Urine Amphetamine (NEGATIVE) U Benzodiazepine Level (NEGATIVE) Urine Cocaine (NEGATIVE) Urine Marijuana (THC) (NEGATIVE) - Progress Progress: improved Air Movement: good Progress Note: 06/24/23 17:59 pt resting comfortably no elevation of troponins labs largely unremarkable pt now complaining of palpitations, feels like his HR is very low, reports feeling diaphoretic repeat ekg ordered 06/24/23 18:11 repeat EKG showed Rate 80bpm, qtcb 490, sinus rhythm, multiple PVCs, no acute ST changes 06/24/23 18:15 HEART score 3 - low risk of ACS 06/24/23 18:25 I discussed my recommendation w/ pt that he be admitted for further cardiac evaluation, likely echo, cardio consult, etc - pt stated that he did not want to be admitted, he needed to go to work and that he would rather f/u w/ his PCP Dr Mcqueen and his bulk materials handling plant operator Dr Heide Castellon as an outpatient, reports that he has appts w/ both of them scheduled in the next week I informed pt that if he leaves it would be against my medical advice, and discussed that he could have complications from his condition while away from the hospital that could resort in . Pt voiced understanding, seems to have understanding of the risks his condition pose, is still requesting to leave AMA AMA paperwork given Blood Culture(s) Obtained: No Antibiotics given: No Medical Desision Making - Diagnostic Testing Diagnostic test were ordered, analyzed, and reviewed by me: Yes Radiological Interpretation: Reviewed by me, Teleradiologist Report - Risk of complications The pt has a high risk of morbidity or mortality based on: Decision regarding hospitilization or escalation of hosp level of care - Departure Departure Disposition: AMA Clinical Impression: Heart palpitations, Irregular heart beat, Frequent PVCs, Abnormal EKG Condition: Stable Critical Care Time: No Referrals: AURORA MCQUEEN MD [Primary Care Provider] - Follow up/PCP as directed Additional Instructions: return to ED if chest pain develops, have syncopal episode, palpitations worsen
[2023-06-24 16:10] LABS: Absolute Neutrophil Ct (ANC) 3.62 x10^3/uL (1.4-6.9); BASOPHIL % 0.7 % (0.0-0.4); Basophil (Absolute #) 0.04 x10^3/uL (0-0.4); Eosinophil % 4.4 % (0.00-5.0); Eosinophil (Absolute #) 0.24 x10^3/uL (0-0.5); Hematocrit 41.3 % (42-50); Hemoglobin 14.2 g/dL (12.5-18.0); IMMATURE GRAN # 0.01 x10^3u/L (0.00-0.03); IMMATURE GRAN % 0.2 % (0.00-0.4); Lymphocyte (Absolute #) 1.11 x10^3/uL (1.0-4.6); Lymphocytes % 20.1 % (24.0-44.0); Mean Cell Volume 105.6 fL (78-100); Mean Corpuscular Hemoglobin 36.3 pg (26-32); Mean Corpuscular Hgb Concent. 34.4 g/dL (32-36); Mean Platelet Volume 9.8 fL (7.5-11.0); Monocyte (Absolute #) 0.49 x10^3/uL (0.0-1.3); Monocytes % 8.9 % (0.0-12.0); Neutrophil % 65.7 % (36.0-66.0); Platelet Count 128 x10^3/uL (150-450); Red Blood Count 3.91 x10^6/uL (4.1-5.6); White Blood Count 5.5 x10^3/uL (4.0-10.5)
[2023-06-24 16:24] LABS: INR 0.9 (0.8-3.0); PROTIME 9.9 SECONDS (9.4-12.5)
[2023-06-24 16:25] LABS: ALBUMIN 3.9 g/dL (3.5-5.0); ANION GAP 12.2 MEQ/L (5-15); BILIRUBIN,TOTAL 0.3 mg/dL (0.2-1.3); Calcium 8.7 mg/dL (8.4-10.2); Creatinine 1 0.59 mg/dL (0.66-1.25); EST GLOMERULAR FILTRATION RATE 120.4 ML/MIN; Potassium 3.8 mmol/L (3.5-5.1); Total Protein 6.9 g/dL (6.3-8.2)
--- NOTE | 2023-06-24 16:32 | XRAY ---
Indication: Short of breath. Comparison: December 15, 2022 PA/lateral chest again demonstrates normal heart and lungs with incidental right apical calcified granuloma. Bony thorax intact with minimal degenerative changes. No new/acute findings.
[2023-06-24 17:38] VITALS: PULSE 77; RESP 20
[2023-06-24 17:58] LABS: Amphetamine,Urine NEGATIVE (NEGATIVE); Barbiturate,Urine NEGATIVE (NEGATIVE); Benzodiazepine,Urine POSITIVE (NEGATIVE); Cocaine,Urine NEGATIVE (NEGATIVE); Methadone,Urine NEGATIVE (NEGATIVE); Opiate,Urine NEGATIVE (NEGATIVE); PCP,Urine NEGATIVE (NEGATIVE); THC,Urine NEGATIVE (NEGATIVE)
[2023-06-24 18:05] VITALS: O2SAT 98
[2023-06-24 18:24] VITALS: BP 125/69
== END 2023-06-24 18:33 | disposition left against medical advice (07) ==
LOC: ED 15:03
DX: R00.2 Palpitations (principal); R06.02 Shortness of breath; I48.91 Unspecified atrial fibrillation; F41.9 Anxiety disorder, unspecified; F17.200 Nicotine dependence, unspecified, uncomplicated; Z79.899 Other long term (current) drug therapy; Z20.828 Contact with and (suspected) exposure to other viral communicable diseases
CPT/HCPCS: 36415; 71046; 80053; 80307; 84484; 85025; 85610; 99283